=== PATIENT | male | born 1960 | race Caucasian/White ===

== ENCOUNTER 2016-05-02 19:32 | Inpatient (IN) ==
[2016-05-03] MEDS ORDERED: Bisacodyl 10 MG RECTAL SUPPOSITORY RC PRN (01:22)
--- NOTE | 2016-05-03 01:22 | Internal Med History&Physical ---
Date of Encounter: 05/03/16 Time of Encounter: 00:15 Assessment and Plan (1) Closed left hip fracture Current visit: Yes Status: Acute Admit I have not been able to locate any studies I will obtain EKG, and 2D ECHO for evaluation case-operative risk stratification I understand he had imaging done at another facility and the orthopedic surgeon has viewed these images. Optimal pain control Consult orthopedic surgery Supportive care. Continue other medications for chronic morbidities GI/DVT prophylaxis The patient will need DEXA in the out-patient stting to evaluate osteoporosis and inform treatment decisions. I discussed my assessment with the patient, he verbalized understanding and is agreeable to admission. He is admitted for management of acute fracture. Qualifiers: Encounter type: initial encounter Qualified Code(s): S72.002A - Fracture of unspecified part of neck of left femur, initial encounter for closed fracture (2) Fall Current visit: Yes Status: Acute Qualifiers: Encounter type: initial encounter Qualified Code(s): W19.XXXA - Unspecified fall, initial encounter (3) Physical deconditioning Current visit: Yes Status: Acute (4) CHF (congestive heart failure) Current visit: Yes Status: Acute Qualifiers: Congestive heart failure chronicity: unspecified congestive heart failure chronicity Qualified Code(s): I50.9 - Heart failure, unspecified (5) Osteoporosis Current visit: Yes Status: Acute Internal Medicine - H&P: HPI Chief complaint: left hip pain x 1 day Admitted From: Hospital to Hospital Transfer Plans for Post Hospital Care: Transfer Residential Facility History of present illness: Mr. Epps is a 55 year old male with medical hsitory significant for CHF, osteoporosis, reported recent multiple hospitalizations, presents with a mechanical fall while trying to unleash his dog. He reports he fell on his left him. He was unable to arise from the fallen position and he felt intractable pain with attempts at arising from the floor. He was brought to the hospital by EMS and imaging conforms left hip fracture. The orthopedic surgeon has been informed, he will see in consult in the morning. He reports no other acute symptoms, he reports chronic symptoms like fatigue, deconditioning, which he relates to reuperation from recent spate of illness. He denied dizziness, no chest pain or palpitation. No fever, no urinary symptoms. No cough, no N//V/D. He agres to unintentional weight loss which he relates to his recent ill- health. He recently underwent open cholecystectomy. He currently has a PICC line, Ertapenem and diflucan are listed on his home medication list. I am unable to confirm their indication. No receords of prior hospitalizatiions in [facility]. No other associated consititutional or systemic symptoms. He is FULL CODE as per discussion. He niominates his spouse, Maura Epps [phone]) as his NOK/POA. ROS: See HPI, positives and relevant negatives are detailed, system-symptom not mentioned is assumed negative unless otherwise stated. Past Med Surg Social Fam HX - Past Medical History Medical history: arthritis, CHF, osteoporosis - Past Surgical History Surgical History: cholecystectomy - Social History Smoking Status: Former smoker Alcohol use: none Drug use: none - Family History Mother Living Status: Age at : 75 Cause of : kidney failure Hx Family Cardiac Disorders: Yes Hx Family Respiratory Disorders: No Hx Family Cancer: No Hx Family GI Disorders: No Hx Family Genitourinary Disorders: Yes Hx Family Endocrine Disorder: Yes Hx Family Musculoskeletal Disorders: No Hx Family Neuromuscular Disorders: No Hx Family Neurologic Disorders: No Hx Family HEENT Disorders: No Hx Family Autoimmune Disorders: No Hx Family Reproductive Disorders: No Hx Family Psychosocial Disorders: No Hx Family Medical Disorders: No Internal Medicine - H&P: Meds Amitriptyline HCl PO DAILY 05/02/16 [History] Bisacodyl [Dulcolax] 10 mg RC PRN PRN 05/02/16 [History] Ertapenem [INVanz] IV DAILY 05/02/16 [History] Fluconazole [Diflucan] PO DAILY 05/02/16 [History] Lactulose BID 05/02/16 [History] Lexapro PO DAILY 05/02/16 [History] Linezolid [Linezolid] PO BID 05/02/16 [History] MOM Conc [Milk of Magnesia Conc] 30 ml PO PRN PRN 05/02/16 [History] Morphine Sulfate SR (12 HR) [MS Contin] 60 mg PO Q12HR 05/02/16 [History] Polyethylene Glycol 3350 [MiraLAX] 17 gm PO PRN PRN 05/02/16 [History] PredniSONE [Ana] 5 mg PO DAILY 05/02/16 [History] Tizanidine HCl [Zanaflex] 4 mg PO TID 05/02/16 [History] Topiramate [Topamax] 50 mg PO BID 05/02/16 [History] Venelex Ointment PRN PRN 05/02/16 [History] Allergies No Known Allergies Allergy (Verified 05/03/16 01:01) All Systems PM: A 10-system review of systems was performed and is negative for pertinent findings except as documented above in the HPI. - Constitutional Vitals: Temp Pulse Resp BP Pulse Ox 98.0 F 114 17 123/81 91 L 05/02/16 22:46 05/02/16 22:46 05/02/16 22:46 05/02/16 22:46 05/02/16 22:46 General appearance: Present: cooperative, mild distress, A&O X 3, pleasant, underweight, loss of weight. Absent: no acute distress - Head Head exam: Present: atraumatic, normal inspection, normocephalic - Eye Eye exam: Present: EOMI, PERRL, sclera anicteric. Absent: scleral icterus Pupils: Present: PERRL - ENT ENT exam: Present: mucous membranes moist - Neck Neck exam general surgery: Present: normal inspection, supple, trachea midline. Absent: lymphadenopathy, nuchal rigidity - Respiratory Respiratory exam: Present: CTAB. Absent: respiratory distress - Cardiovascular Cardiovascular exam: Present: RRR, +S1, +S2. Absent: diastolic murmur, JVD, systolic murmur - GI/Abdominal GI/Abdominal exam: Present: normal bowel sounds, soft. Absent: firm, guarding, mass, tenderness, no peritoneal signs - Rectal Rectal exam: Present: deferred - Additional comments: no CVA, flank or suprapubic tenderness. No bruises over flanl. - Extremities Exam Additional comments: left lower extremity is shortened and externally rotated. - Neurological Exam Neurological exam: Present: alert, oriented X3, reflexes normal, no focal deficits, strengths equal and symetr throughout. Absent: motor sensory deficit , pronater drift, facial droop, speech deficit Additional comments: except for left lower extremity, where perceived weakness is due to limitation from fracture. - Psychiatric Psychiatric exam: Present: normal affect, normal mood. Absent: agitated, anxious, depressed, homicidal ideation, suicidal ideation - Skin Additional comments: no active skin lesion Internal Med - H&P Results - Labs Labs: not available yet. Just ordered. - EKG Data EKG comments: 05/03/16 03:11 EKG ordered.
[2016-05-03] MEDS ORDERED: Acetaminophen 325 MG TABLET PO PRN (01:34)
[2016-05-03] MEDS ORDERED: Naloxone 0.4 MG/ML INJ IVP PRN (01:34)
[2016-05-03] MEDS ORDERED: Ondansetron 4 MG/2 ML VIAL IVP PRN (01:39)
[2016-05-03] MEDS: *HR* Morphine 2 MG/ML SYRINGE IVP PRN ×6 (01:54→21:54)
[2016-05-03] MEDS: Ringers Solution, Lactated 1,000 ML IVC SCH (01:55)
[2016-05-03 02:22] LABS: Bilirubin,Urine Negative (Negative); Blood,Urine Negative (Negative); Clarity,Urine Clear (Clear); Color,Urine Yellow (Yellow); Glucose,Urine (UA) Normal (Normal); Ketones,Urine Negative (Negative); Leukocyte Esterase,Urine Negative (Negative); Nitrite,Urine Negative (Negative); Protein,Urine Trace mg/dL (Neg-Trace); Specific Gravity,Urine 1.019 (1.010-1.025); Urobilinogen,Urine Normal (Normal)
[2016-05-03 02:24] LABS: Bacteria,Urine None Seen per hpf (None-Few); Hyaline Casts,Urine None Seen per lpf (None-Few); RBC,Urine 0-3 per hpf (0-3); Squamous Epithelial Cell,Urine Few per lpf (None-Few); WBC,Urine 0-3 per hpf (0-3)
[2016-05-03] MEDS: *HR* Morphine Sulfate SR (12 HR) 60 MG TABLET.ER PO SCH ×2 (05:24→17:45)
[2016-05-03] MEDS: *HR* Enoxaparin 40 MG/0.4 ML SYRINGE SQ SCH (05:24)
[2016-05-03 05:47] LABS: Basophils # 0.1 K/mcL (0.0-0.2); Basophils % 0.6 %; Eosinophils # 0.3 K/mcL (0.0-0.6); Hemoglobin 10.8 g/dL (12.9-16.9); Immature Granulocytes % 0.4 % (0-4); Lymphocytes # 2.2 K/mcL (0.6-4.6); Lymphocytes % 26.1 %; Mean Corpuscular HGB Conc 32.7 g/dL (31.6-35.5); Mean Corpuscular Hemoglobin 30.9 pg (28.0-33.3); Mean Corpuscular Volume 94.6 fL (83.0-100.0); Monocytes # 0.6 K/mcL (0.0-1.3); Monocytes % 7.6 %; Neutrophils # 5.1 K/mcL (1.6-8.9); Platelet Count 133 K/mcL (140-400); Red Blood Count 3.49 M/mcL (4.19-5.50); Red Cell Distribution Width 15.7 % (11.5-14.5); Segmented Neutrophils % 61.3 %
[2016-05-03 06:34] LABS: BUN/Creatinine Ratio 11 (6-26); Blood Urea Nitrogen 7 mg/dL (8-26); Carbon Dioxide 22 mEq/L (19-29); Chloride 107 mEq/L (98-109); Creatine Kinase 63 Units/L (30-200); Glucose 83 mg/dL (70-99); Osmolality,Calculated 283 (280-300); Potassium 3.7 mEq/L (3.5-4.5); Sodium 138 mEq/L (136-145); eGFR For African Americans > 60 (> 60); eGFR For Non-African Americans > 60 (> 60)
[2016-05-03] MEDS: *HR* HYDROcodone/Acet 5/325 mg TABLET PO PRN (06:51)
[2016-05-03] MEDS ORDERED: MOM Conc 10 ML UD.LIQ PO PRN (09:00)
[2016-05-03] MEDS: predniSONE 5 MG TABLET PO SCH (09:27)
[2016-05-03] MEDS: Topiramate 25 MG TABLET PO SCH ×2 (09:27→21:11)
[2016-05-03] MEDS: tiZANidine 4 MG TABLET PO SCH ×3 (09:27→21:11)
--- NOTE | 2016-05-03 13:55 | ECHO - Doppler Report ---
Echocardiogram Name: Chapo Epps Date of Study: 05/03/2016 Date: 1960 Ht: 69.0 in Medical Record#: [id number] Age: 55 Wt: 129.0 lb Gender: Male BSA: 1.71 Order #: [id number] Location: [facility] Room #: [facility] Reading Physician: Raul Grover DO, BARRON, WESLEY REAL Rn Case Management: Aarti Ch RVT Ordering Physician: Cosme Pereira MD Primary Physician: Carisa Ferguson MD Indications: History of heart failure Impressions: LVEF 50%. Normal LV chamber size, wall thickness and function. Mild left ventricular diastolic dysfunction. Normal right ventricular structure and function. No evidence of pulmonary hypertension. No significant valvular dysfunction. Left Ventricular Wall Motion: Rest Echo Findings All wall segments showed normal motion. Findings: Study Quality * Technically sub-optimal due to poor echocardiographic windows. ECG Findings * Sinus tachycardia. Left Ventricle * LVEF 50%. * Normal LV chamber size, wall thickness and function. * Mild left ventricular diastolic dysfunction. Right Ventricle * Normal right ventricular structure and function. Left Atrium * Normal left atrial size. Right Atrium * Normal right atrial size. Interatrial Septum * No evidence of PFO by color Doppler. Aortic Valve * Trileaflet aortic valve with normal function. * No aortic regurgitation. * No aortic stenosis. Mitral Valve * Normal mitral valve structure and function. * No mitral regurgitation. * No mitral stenosis. Tricuspid Valve * Normal tricuspid valve structure and function. * Trace tricuspid regurgitation. * No evidence of pulmonary hypertension. Pulmonic Valve * Normal pulmonic valve structure and function. * No pulmonic regurgitation. Aorta * Normally sized aortic root. Pericardium * The pericardium appears normal. IVC * Normal IVC dimensions and inspiratory collapse. Pulmonary Artery * Normal visualized portions of the main pulmonary artery. History Family History of CAD Measurements: BP: 135/ 84 2D Normal Values RVIDd: 1.80 cm <2.7 cm IVSd: .70 cm 0.6 - 1.0 cm LVIDd: 4.80 cm 3.7 - 5.6 cm LVPWd: .70 cm 0.6 - 1.1 cm LVIDs: 3.40 cm 1.5 - 3.6 cm AO: 2.50 cm < 4.0 cm LA: 2.90 cm 2.0 - 4.0cm %FS: 29.20 cm >25 % LA volume: 29 Mitral Valve Peak E:1.13 m/sec Peak E' Lat Ayo:13.8 cm/s Peak E' Med Ayo:13.4 cm/s E/E' Lat Ratio:8.2 E/E' Med Ratio:8.4 Tricuspid Valve TV Regurg Peak Grad: 28.00mmHg TV Regurg Peak Ayo: 2.63m/sec Updated by Raul Grover DO, FACBrent, FARHAN, FASALMA on 05/03/2016 1:47:44 PM electronically signed on 05/03/2016 1:50:31 PM with status of Final Wall Motion Richard: 1=Normal, 2=Hypokinesis, 3=Akinesis, 4=Dyskinesis, 5=Aneurysmal, 6=Hyperkinetic, X=Not Visualized (Blank)=Missing
--- NOTE | 2016-05-03 17:27 | Event Note ---
Date of Encounter: 05/03/16 Time of Encounter: 17:24 Patient recently hospitalized at [facility] and treated for right abdominal abscess and acute cholecystitis. He underwent open cholecystectomy followed by placement of percutaneous drainage for right abdominal abscess . He was discharged home on Invanz 1gm daily from 04/25 to 06/04. Patient reports pain is controlled with pain medications. No history of CHF, he was on lasix for LE edema but has no taken it for the past 4 months. PE: VS stable. Chest CTAB. Heart RRR, no murmur. abdomen soft, non-tender. no edema. no skin rash. neuro intact. echocardiogram: LVEF 50%, mild diastolic dysfunction. PLAN: resume IV Invanz 1 gm daily and Vancomycin.
[2016-05-03] MEDS ORDERED: Vancomycin 1,000 MG in D5% in Water 250 ML IVPB SCH (18:00)
[2016-05-03] MEDS: Ertapenem 1,000 MG in 0.9 % Sodium Chloride Mini Bag 100 ML IVPB SCH (18:02)
[2016-05-03] MEDS: Vancomycin 1,000 MG in D5% in Water 250 ML IVPB SCH (19:36)
[2016-05-04] MEDS: *HR* Morphine 2 MG/ML SYRINGE IVP PRN ×9 (00:26→22:39)
[2016-05-04 04:23] LABS: BUN/Creatinine Ratio 6 (6-26); Calcium 8.2 mg/dL (8.6-10.8); Carbon Dioxide 23 mEq/L (19-29); Chloride 105 mEq/L (98-109); Glucose 102 mg/dL (70-99); Magnesium 1.3 mg/dL (1.6-2.6); Osmolality,Calculated 281 (280-300); Potassium 3.6 mEq/L (3.5-4.5); Sodium 137 mEq/L (136-145); eGFR For African Americans > 60 (> 60); eGFR For Non-African Americans > 60 (> 60)
[2016-05-04 04:25] LABS: Blood Urea Nitrogen 4 mg/dL (8-26)
[2016-05-04 04:26] LABS: Basophils # 0.1 K/mcL (0.0-0.2); Basophils % 0.6 %; Eosinophils # 0.4 K/mcL (0.0-0.6); Eosinophils % 5.2 %; Hematocrit 34.4 % (37.5-50.1); Hemoglobin 11.1 g/dL (12.9-16.9); Immature Granulocytes % 0.4 % (0-4); Lymphocytes # 2.3 K/mcL (0.6-4.6); Lymphocytes % 27.9 %; Mean Corpuscular HGB Conc 32.3 g/dL (31.6-35.5); Mean Corpuscular Hemoglobin 30.2 pg (28.0-33.3); Mean Corpuscular Volume 93.7 fL (83.0-100.0); Mean Platelet Volume 10.2 fL (9.4-12.4); Monocytes # 0.7 K/mcL (0.0-1.3); Monocytes % 8.6 %; Neutrophils # 4.7 K/mcL (1.6-8.9); Platelet Count 147 K/mcL (140-400); Red Blood Count 3.67 M/mcL (4.19-5.50); Red Cell Distribution Width 15.7 % (11.5-14.5); Segmented Neutrophils % 57.3 %
[2016-05-04] MEDS: *HR* Morphine Sulfate SR (12 HR) 60 MG TABLET.ER PO SCH ×2 (05:50→18:33)
[2016-05-04] MEDS: Vancomycin 1,000 MG in D5% in Water 250 ML IVPB SCH ×3 (05:51→18:34)
[2016-05-04] MEDS: Ringers Solution, Lactated 1,000 ML IVC SCH (05:52)
[2016-05-04] MEDS: *HR* Enoxaparin 40 MG/0.4 ML SYRINGE SQ SCH (06:35)
[2016-05-04] MEDS: tiZANidine 4 MG TABLET PO SCH ×3 (08:13→19:57)
[2016-05-04] MEDS: Topiramate 25 MG TABLET PO SCH ×2 (08:13→19:57)
[2016-05-04] MEDS: Ertapenem 1,000 MG in 0.9 % Sodium Chloride Mini Bag 100 ML IVPB SCH (08:13)
[2016-05-04] MEDS: predniSONE 5 MG TABLET PO SCH (08:13)
[2016-05-04] MEDS: *HR* HYDROcodone/Acet 5/325 mg TABLET PO PRN ×2 (12:12→18:33)
[2016-05-04] MEDS ORDERED: Magnesium Sulfate 2 GM in D5% in Water 100 ML IVPB STA (13:01)
[2016-05-04] MEDS ORDERED: Magnesium Sulfate 1 GM in D5% in Water 100 ML IVPB ONE (13:04)
--- NOTE | 2016-05-04 14:22 | Orthopedic Consult Note ---
Date of Encounter: 05/04/16 Time of Encounter: 14:18 Assessment and Plan (1) Closed left hip fracture Current Visit: Yes Status: Acute Patient is a displaced femoral neck fracture his left hip. Discussed with patient this will require a hemiarthroplasty The procedure with the expected postoperative care was discussed patient. We discussed the risks, benefits and alternatives. Major risks discussed with her leg length discrepancy, segment of injury, dislocation, and infections. The patient states that due to scoliosis he is already one quarter of an inch shorter on the right side and uses a shoe lift. Qualifiers: Encounter type: initial encounter Qualified Code(s): S72.002A - Fracture of unspecified part of neck of left femur, initial encounter for closed fracture (2) Abscess, intra-abdominal, postoperative Current Visit: Yes Status: Acute The patient has a postoperative abdominal abscess that was drained. We will order a CT scan of his chest and abdomen with IV contrast. Discussed patient that if the abscess is still present, I do recommend putting in a prosthesis until the infection is completely cleared. Qualifiers: Encounter type: initial encounter Qualified Code(s): T81.4XXA - Infection following a procedure, initial encounter; K65.1 - Peritoneal abscess History of Present Illness Chief complaint: Left hip pain HPI: Mr. Epps is a 55 year old male ending over this and night attending to his dog when he fell over onto his left side sustaining a left hip fracture. Patient is a normal community ambulator. The patient is a significant recent past medical history of an open cholecystectomy on 03/25/2016 at [facility] in [place]. Patient had a postoperative abscess that apparently extended into his mediastinum according to the patient. His discharge summary shows that an intra-abdominal abscess was drained by IR on 04/16/2016. The patient has been receiving Invanz through PICC line. I spoke with the cardiothoracic surgeon, Dr. Benny Jimenez, he recommends repeating a CT scan of his chest and abdomen with IV contrast. Past Med Surg Social Fam HX - Past Medical History Source: patient, old records reviewed Medical history: arthritis, CHF, osteoporosis - Past Surgical History Surgical History: cholecystectomy (With postop abscess), orthopedic, other ( Spine fusion), other (Exploratory laparotomy secondary to trauma) - Social History Smoking Status: Former smoker Alcohol use: none Drug use: none - Family History Mother Living Status: Age at : 75 Cause of : kidney failure Hx Family Cardiac Disorders: Yes Hx Family Respiratory Disorders: No Hx Family Cancer: No Hx Family GI Disorders: No Hx Family Genitourinary Disorders: Yes Hx Family Endocrine Disorder: Yes Hx Family Musculoskeletal Disorders: No Hx Family Neuromuscular Disorders: No Hx Family Neurologic Disorders: No Hx Family HEENT Disorders: No Hx Family Autoimmune Disorders: No Hx Family Reproductive Disorders: No Hx Family Psychosocial Disorders: No Hx Family Medical Disorders: No Medications and Allergies MOM Conc [Milk of Magnesia Conc] 30 ml PO PRN PRN 05/02/16 [History] Morphine Sulfate SR (12 HR) [MS Contin] 60 mg PO Q12HR 05/02/16 [History] Polyethylene Glycol 3350 [MiraLAX] 17 gm PO PRN PRN 05/02/16 [History] PredniSONE [Ana] 5 mg PO DAILY 05/02/16 [History] Tizanidine HCl [Zanaflex] 4 mg PO TID 05/02/16 [History] Topiramate [Topamax] 50 mg PO BID 05/02/16 [History] Amitriptyline [Elavil] 50 mg PO HS 05/03/16 [History] Escitalopram [Lexapro] 10 mg PO DAILY 05/03/16 [History] Sennosides/Docusate Sodium [Cvs Stool Softener-Laxative Tb] 1 tab PO BID PRN [History] Testosterone Cypionate [Testone Cik] 2.5 ml IM QMONTH 05/03/16 [History] Allergies No Known Allergies Allergy (Verified 05/03/16 09:02) All Systems Reviewed: A 10-system review of systems was performed and is negative for pertinent findings except as documented above in the HPI. Physical Exam - Constitutional Vitals: Temp Pulse Resp BP Pulse Ox 98.1 F 118 16 118/87 99 05/04/16 11:58 05/04/16 11:58 05/04/16 11:58 05/04/16 11:58 05/04/16 11:58 - Fracture left hip Appearance: normal (Left lower extremity shortening and external rotation) Compartments: soft Distal extremity neurovascularly intact: Yes Proximal joint involvement: Yes Distal joint involvement: No Other injury: muscle injury: no, tendon injury: no, ligament injury: no, vascular injury: no, nerve injury: no Results - Labs Result Diagrams: 05/04/16 03:57 05/04/16 03:57 Labs: Abnormal lab results RBC 3.67 M/mcL (4.19-5.50) L 05/04/16 03:57 Hgb 11.1 g/dL (12.9-16.9) L 05/04/16 03:57 Hct 34.4 % (37.5-50.1) L 05/04/16 03:57 RDW 15.7 % (11.5-14.5) H 05/04/16 03:57 BUN 4 mg/dL (8-26) L 05/04/16 03:57 Creatinine 0.64 mg/dL (0.72-1.25) L 05/04/16 03:57 Glucose 102 mg/dL (70-99) H 05/04/16 03:57 Calcium 8.2 mg/dL (8.6-10.8) L 05/04/16 03:57 Magnesium 1.3 mg/dL (1.6-2.6) L 05/04/16 03:57 H & H 05/04/16 Range/Units 03:57 Hgb 11.1 L (12.9-16.9) g/dL Hct 34.4 L (37.5-50.1) % All other labs normal. - Diagnostic results Hip x-ray: image reviewed (Left hip displaced femoral neck fracture) Consult Discharge Plan - Plan Referrals: Carisa Ferguson MD [Primary Care Provider] -
--- NOTE | 2016-05-04 16:04 | Internal Med Progress Note ---
Date of Encounter: 05/04/16 Time of Encounter: 13:00 - Assessment and plan (1) Fall Current Visit: Yes Status: Acute Assessment and plan: mechanical fall Qualifiers: Encounter type: initial encounter Qualified Code(s): W19.XXXA - Unspecified fall, initial encounter (2) Closed left hip fracture Current Visit: Yes Status: Acute Assessment and plan: 05/03: X-ray of hip shows displaced femoral neck fracture in his left hip. Orthopedic service is following: plan for hemiarthorplasty. continue pain control. Qualifiers: Encounter type: initial encounter Qualified Code(s): S72.002A - Fracture of unspecified part of neck of left femur, initial encounter for closed fracture (3) Abscess, intra-abdominal, postoperative Current Visit: Yes Status: Acute Assessment and plan: Patient recently hospitalized at [facility] and treated for right abdominal abscess and acute cholecystitis. He underwent open cholecystectomy followed by placement of percutaneous drainage for right abdominal abscess . He was discharged home on Invanz 1gm daily and oral Zyvox 600 mg daily from 04/25 to 06/04. PLAN:check ESR, CRP, Ct chest/ab/pelvis with contrast to assess abscess. Qualifiers: Encounter type: initial encounter Qualified Code(s): T81.4XXA - Infection following a procedure, initial encounter; K65.1 - Peritoneal abscess (4) Diastolic CHF Current Visit: No Status: Chronic Assessment and plan: compensated. patient not taking lasix for 3 months. Qualifiers: Congestive heart failure chronicity: chronic Qualified Code(s): I50.32 - Chronic diastolic (congestive) heart failure - Subjective Interval history: he reports pain in his left hip. no other complaints. - Constitutional Vitals: Temp Pulse Resp BP Pulse Ox 97.8 F 111 16 118/75 97 05/04/16 15:51 05/04/16 15:51 05/04/16 15:51 05/04/16 15:51 05/04/16 15:51 General appearance: Present: cooperative, mild distress, A&O X 3, pleasant, underweight, loss of weight. Absent: no acute distress - Eye Eye exam: Present: PERRL, sclera anicteric - Neck Neck exam general surgery: Present: supple, trachea midline. Absent: lymphadenopathy - Respiratory Respiratory exam: Present: CTAB - Cardiovascular Cardiovascular exam: Present: RRR, tachycardia - GI/Abdominal GI/Abdominal exam: Present: normal bowel sounds, soft. Absent: distended, tenderness - Extremities Exam Extremities exam: Absent: pedal edema - Back Exam Back exam: Absent: CVA tenderness (L), CVA tenderness (R) - Neurological Exam Neurological exam: Present: alert, oriented X3, no focal deficits. Absent: facial droop, speech deficit Internal Medicine: Result - Labs CBC & Chem 7: 05/04/16 03:57 05/04/16 03:57 Labs: Short CBC 05/04/16 Range/Units 03:57 WBC 8.3 (4.3-11.1) K/mcL Hgb 11.1 L (12.9-16.9) g/dL Hct 34.4 L (37.5-50.1) % Plt Count 147 (140-400) K/mcL Neutrophils # 4.7 (1.6-8.9) K/mcL BMP 05/04/16 03:57 Sodium 137 Potassium 3.6 Chloride 105 Carbon Dioxide 23 BUN 4 L Creatinine 0.64 L Glucose 102 H Calcium 8.2 L Consult Discharge Plan - Plan Referrals: Carisa Ferguson MD [Primary Care Provider] -
[2016-05-04] MEDS ORDERED: Ipratropium/Albuterol Neb 3 ML IH PRN (17:35)
[2016-05-04] MEDS: Ipratropium/Albuterol Neb 3 ML IH SCH (22:54)
[2016-05-05] MEDS: Ringers Solution, Lactated 1,000 ML IVC SCH ×3 (00:55→18:26)
[2016-05-05] MEDS: *HR* Morphine 2 MG/ML SYRINGE IVP PRN ×2 (00:56→05:01)
[2016-05-05] MEDS: *HR* Enoxaparin 40 MG/0.4 ML SYRINGE SQ SCH (05:13)
[2016-05-05 05:16] LABS: Basophils # 0.1 K/mcL (0.0-0.2); Basophils % 0.8 %; Eosinophils # 0.4 K/mcL (0.0-0.6); Eosinophils % 5.5 %; Hematocrit 34.1 % (37.5-50.1); Hemoglobin 11.4 g/dL (12.9-16.9); Immature Granulocytes % 0.3 % (0-4); Lymphocytes # 2.4 K/mcL (0.6-4.6); Lymphocytes % 29.6 %; Mean Corpuscular HGB Conc 33.4 g/dL (31.6-35.5); Mean Corpuscular Volume 92.7 fL (83.0-100.0); Mean Platelet Volume 9.9 fL (9.4-12.4); Monocytes # 0.8 K/mcL (0.0-1.3); Monocytes % 9.8 %; Neutrophils # 4.3 K/mcL (1.6-8.9); Platelet Count 144 K/mcL (140-400); Red Blood Count 3.68 M/mcL (4.19-5.50); Red Cell Distribution Width 15.6 % (11.5-14.5)
[2016-05-05 05:31] LABS: BUN/Creatinine Ratio 5 (6-26); Calcium 8.4 mg/dL (8.6-10.8); Carbon Dioxide 22 mEq/L (19-29); Chloride 108 mEq/L (98-109); Glucose 100 mg/dL (70-99); Osmolality,Calculated 281 (280-300); Potassium 3.6 mEq/L (3.5-4.5); Sodium 137 mEq/L (136-145); eGFR For African Americans > 60 (> 60); eGFR For Non-African Americans > 60 (> 60)
[2016-05-05 05:35] LABS: Blood Urea Nitrogen 3 mg/dL (8-26)
[2016-05-05] MEDS: *HR* Morphine Sulfate SR (12 HR) 60 MG TABLET.ER PO SCH ×2 (06:15→17:42)
--- NOTE | 2016-05-05 06:31 | General Surgery Consult Note ---
<Jovany Barbosa - Last Filed: 05/05/16 13:13> Date of Encounter: 05/05/16 Time of Encounter: 17:45 Assessment and Plan (1) Closed left hip fracture Current Visit: Yes Status: Acute s/p mechanical fall. Orthopedics involved. Recent hospitalization for intra-abdominal abscess. Concern for prosthesis with recent infection. Recent inpatient records requested. (2) Abscess, intra-abdominal, postoperative Current Visit: Yes Status: Chronic intra-abdominal abscess s/p open cholcystectomy 03/25/16. CT confirmed fluid collection in the gallbladder fossa. Records requested from previous inpatient hospitalization. Patient previously on Zyvox and ertapenem throught PICC at home, will continue dual antibiotic coverage. (3) Fall Current Visit: Yes Status: Acute L hip fracture s/p mechanical fall Orthopedics consulted. (4) CHF (congestive heart failure) Current Visit: Yes Status: Chronic No apparent acute CHF. Management per medicine service. (5) Osteoporosis Current Visit: Yes Status: Chronic (6) Physical deconditioning Current Visit: Yes Status: Chronic History of Present Illness Consult date: 05/04/16 Reason for consult: other (L leg fracture) Requesting physician: Jese Riggs History of present illness: Patient transferred to [place] for L leg fracture, which occurred on . On CT he was found to have gallbladder fossa fluid collection on CT. Mr. Epps had recently been admitted to [facility] in [place], had open cholecystectomy due to bowel obstruction on Mar 25, 2016. Discharged on Apr 09 2016. On follow up, found to be tachycardiac (per patient) and readmitted on Apr 15 for intra-abdominal and pericardial infection. Patient states during this stay he also had fluid on his lungs and they drained approx 1 L, which he felt better after they did so. They also placed an intra-abdominal drain for the abdominal abscess and began him on Ertapenem 1gm IV daily and Zyvox 600mg Q12H, those of which he was continuing to take prior to this current admission. Patient just discharged from [facility] on 04/24/16. He states he had an echo while inpatient and was at the humidifier maintenance worker office 05/02/16 to follow up and review result, however it had to be reschedule due to the physician having an emergency. He was to follow up with Dr. Jaquez, the Surgeon, within two weeks; an appt. had not yet been made. Patient denies any complaints other than pain in his L leg. Denies any chest pain, palpitations, dizziness, shortness of breath, abdominal pain. Past Med Surg Social Fam HX - Past Medical History Source: patient, obtained from family Medical history: arthritis, CHF, osteoporosis - Past Surgical History Surgical History: cholecystectomy (With postop abscess), orthopedic, other ( Spine fusion), other (Exploratory laparotomy secondary to trauma) - Social History Smoking Status: Former smoker Alcohol use: none Drug use: none - Family History Mother Living Status: Age at : 75 Cause of : kidney failure Hx Family Cardiac Disorders: Yes Hx Family Respiratory Disorders: No Hx Family Cancer: No Hx Family GI Disorders: No Hx Family Genitourinary Disorders: Yes Hx Family Endocrine Disorder: Yes Hx Family Musculoskeletal Disorders: No Hx Family Neuromuscular Disorders: No Hx Family Neurologic Disorders: No Hx Family HEENT Disorders: No Hx Family Autoimmune Disorders: No Hx Family Reproductive Disorders: No Hx Family Psychosocial Disorders: No Hx Family Medical Disorders: No Medications and Allergies MOM Conc [Milk of Magnesia Conc] 30 ml PO PRN PRN 05/02/16 [History] Morphine Sulfate SR (12 HR) [MS Contin] 60 mg PO Q12HR 05/02/16 [History] Polyethylene Glycol 3350 [MiraLAX] 17 gm PO PRN PRN 05/02/16 [History] PredniSONE [Ana] 5 mg PO DAILY 05/02/16 [History] Tizanidine HCl [Zanaflex] 4 mg PO TID 05/02/16 [History] Topiramate [Topamax] 50 mg PO BID 05/02/16 [History] Amitriptyline [Elavil] 50 mg PO HS 05/03/16 [History] Escitalopram [Lexapro] 10 mg PO DAILY 05/03/16 [History] Sennosides/Docusate Sodium [Cvs Stool Softener-Laxative Tb] 1 tab PO BID PRN [History] Testosterone Cypionate [Testone Cik] 2.5 ml IM QMONTH 05/03/16 [History] Allergies No Known Allergies Allergy (Verified 05/03/16 09:02) Review of Systems All systems PM: A 10-system review of systems was performed and is negative for pertinent findings except as documented above in the HPI. - Constitutional no chills, no fever(s) - EENT Nose, mouth and throat: no dizziness - Cardiovascular no chest pain, no dyspnea, no edema, no palpitations, no syncope - Respiratory no dyspnea - Gastrointestinal no abdominal pain - Genitourinary no dysuria - Musculoskeletal muscle weakness (deconditioning) - Neurological no confusion, no dizziness - Endocrine fatigue, no palpitations General Surgery Exam Initial Vital Signs Temp Pulse Resp BP Pulse Ox 98.0 F 114 17 123/81 91 L 05/02/16 22:46 05/02/16 22:46 05/02/16 22:46 05/02/16 22:46 05/02/16 22:46 - General physical appearance well developed, well nourished, no distress - Eyes normal ocular movement - ENT normal mucosa - Neck trachea midline - Respiratory normal respiratory effort, clear to auscultation - Cardiovascular Cardiovascular exam: Present: RRR, 15, 16 - Abdomen Abdomen general surgery: Present: bowel sounds present, soft, non tender - Incision Incision: Present: intact (previous incision from open cholecystectomy in [facility] appears to be healing well, no apparent erythema or draining.) - Integumentary Integumentary general surgery: Present: warm and dry, no abnormal pigmentation - Neurologic Present: CN 2-12 grossly intact - Psychiatric Psychiatric general surgery: Present: appropriate, oriented to person, oriented to place, oriented to time, speech is normal, memory intact Exam Initial Vital Signs Temp Pulse Resp BP Pulse Ox 98.0 F 114 17 123/81 91 L 05/02/16 22:46 05/02/16 22:46 05/02/16 22:46 05/02/16 22:46 05/02/16 22:46 Results - Labs 05/05/16 05:00 05/05/16 05:00 Abnormal lab results RBC 3.68 M/mcL (4.19-5.50) L 05/05/16 05:00 Hgb 11.4 g/dL (12.9-16.9) L 05/05/16 05:00 Hct 34.1 % (37.5-50.1) L 05/05/16 05:00 RDW 15.6 % (11.5-14.5) H 05/05/16 05:00 ESR 79 mm/hr (0-10) H 05/04/16 03:57 BUN 3 mg/dL (8-26) L 05/05/16 05:00 Creatinine 0.59 mg/dL (0.72-1.25) L 05/05/16 05:00 BUN/Creatinine Ratio 5 (6-26) L 05/05/16 05:00 Glucose 100 mg/dL (70-99) H 05/05/16 05:00 Calcium 8.4 mg/dL (8.6-10.8) L 05/05/16 05:00 C-Reactive Protein 68 mg/L (Less than 5) H 05/04/16 03:57 Diabetes panel 05/05/16 Range/Units 05:00 Sodium 137 (136-145) mEq/L Potassium 3.6 (3.5-4.5) mEq/L Chloride 108 (98-109) mEq/L Carbon Dioxide 22 (19-29) mEq/L BUN 3 L (8-26) mg/dL Creatinine 0.59 L (0.72-1.25) mg/dL Glucose 100 H (70-99) mg/dL Calcium 8.4 L (8.6-10.8) mg/dL Calcium panel 05/05/16 Range/Units 05:00 Calcium 8.4 L (8.6-10.8) mg/dL Pituitary panel 05/05/16 Range/Units 05:00 Sodium 137 (136-145) mEq/L Potassium 3.6 (3.5-4.5) mEq/L Chloride 108 (98-109) mEq/L Carbon Dioxide 22 (19-29) mEq/L BUN 3 L (8-26) mg/dL Creatinine 0.59 L (0.72-1.25) mg/dL Glucose 100 H (70-99) mg/dL Calcium 8.4 L (8.6-10.8) mg/dL Adrenal panel 05/05/16 Range/Units 05:00 Sodium 137 (136-145) mEq/L Potassium 3.6 (3.5-4.5) mEq/L Chloride 108 (98-109) mEq/L Carbon Dioxide 22 (19-29) mEq/L BUN 3 L (8-26) mg/dL Creatinine 0.59 L (0.72-1.25) mg/dL Glucose 100 H (70-99) mg/dL Calcium 8.4 L (8.6-10.8) mg/dL All other labs normal. Consult Discharge Plan - Plan Referrals: Carisa Ferguson MD [Primary Care Provider] - <Deb Garcia - Last Filed: 05/07/16 10:10> Review of Systems All systems PM: A 10-system review of systems was performed and is negative for pertinent findings except as documented above in the HPI. General Surgery Exam Initial Vital Signs Temp Pulse Resp BP Pulse Ox 98.0 F 114 17 123/81 91 L 05/02/16 22:46 05/02/16 22:46 05/02/16 22:46 05/02/16 22:46 05/02/16 22:46 Exam Initial Vital Signs Temp Pulse Resp BP Pulse Ox 98.0 F 114 17 123/81 91 L 05/02/16 22:46 05/02/16 22:46 05/02/16 22:46 05/02/16 22:46 05/02/16 22:46 Results - Labs 05/07/16 03:46 05/07/16 03:46 Abnormal lab results RBC 3.68 M/mcL (4.19-5.50) L 05/05/16 05:00 Hgb 8.5 g/dL (12.9-16.9) L 05/07/16 03:46 Hct 26.1 % (37.5-50.1) L 05/07/16 03:46 RDW 15.6 % (11.5-14.5) H 05/05/16 05:00 ESR 79 mm/hr (0-10) H 05/04/16 03:57 Potassium 3.2 mEq/L (3.5-4.5) L 05/07/16 03:46 BUN 4 mg/dL (8-26) L 05/07/16 03:46 Creatinine 0.56 mg/dL (0.72-1.25) L 05/07/16 03:46 Calcium 7.8 mg/dL (8.6-10.8) L 05/07/16 03:46 C-Reactive Protein 68 mg/L (Less than 5) H 05/04/16 03:57 Serum Total Protein 5.1 g/dL (6.0-8.3) L 05/06/16 08:00 Albumin 1.9 g/dL (3.5-5.0) L 05/06/16 08:00 Albumin/Globulin Ratio 0.6 (1.1-2.2) L 05/06/16 08:00 Diabetes panel 05/07/16 Range/Units 03:46 Sodium 139 (136-145) mEq/L Potassium 3.2 L (3.5-4.5) mEq/L Chloride 109 (98-109) mEq/L Carbon Dioxide 21 (19-29) mEq/L BUN 4 L (8-26) mg/dL Creatinine 0.56 L (0.72-1.25) mg/dL Glucose 90 (70-99) mg/dL Calcium 7.8 L (8.6-10.8) mg/dL Calcium panel 05/07/16 Range/Units 03:46 Calcium 7.8 L (8.6-10.8) mg/dL Pituitary panel 05/07/16 Range/Units 03:46 Sodium 139 (136-145) mEq/L Potassium 3.2 L (3.5-4.5) mEq/L Chloride 109 (98-109) mEq/L Carbon Dioxide 21 (19-29) mEq/L BUN 4 L (8-26) mg/dL Creatinine 0.56 L (0.72-1.25) mg/dL Glucose 90 (70-99) mg/dL Calcium 7.8 L (8.6-10.8) mg/dL Adrenal panel 05/07/16 Range/Units 03:46 Sodium 139 (136-145) mEq/L Potassium 3.2 L (3.5-4.5) mEq/L Chloride 109 (98-109) mEq/L Carbon Dioxide 21 (19-29) mEq/L BUN 4 L (8-26) mg/dL Creatinine 0.56 L (0.72-1.25) mg/dL Glucose 90 (70-99) mg/dL Calcium 7.8 L (8.6-10.8) mg/dL All other labs normal. - Attending Attestation Dr Riggs was only inquiring as to input as to risk for surgery and if thought there was anything to do from surgical standpoint and currently no general surgery intervention needed. Will request records from [facility]. Do not charge for this encounter as I did not personally see patient.
[2016-05-05] MEDS: Vancomycin 1,000 MG in D5% in Water 250 ML IVPB SCH ×2 (07:04→18:27)
--- NOTE | 2016-05-05 07:17 | Anesthesia Evaluation PreOp ---
Date of Encounter: 05/05/16 Time of Encounter: 07:14 - Past History Planned Operation: L hip hemiarthroplasty Cardiac History: CHF, Other (echo 05/03: ef 50, nl rv, no valve dysfct. pt on chronic prednisone) Pulmonary History: Other (therapeutic lovenox) EVENT AV OPERATOR History: Denies Any Significant HX Other Medical History: Other (h/o open rosa elena, complicated by post operative gallbladder fossa abscess and mediastinal abscess. on abx x 3 weeks now, s/p fall with hip fx. PICC) Anesthesia History: No Prior Anesthetic Complications, Past Anesthesia ( cholecyst) Alcohol Use: none Drug use: none Medications and Allergies MOM Conc [Milk of Magnesia Conc] 30 ml PO PRN PRN 05/02/16 [History] Morphine Sulfate SR (12 HR) [MS Contin] 60 mg PO Q12HR 05/02/16 [History] Polyethylene Glycol 3350 [MiraLAX] 17 gm PO PRN PRN 05/02/16 [History] PredniSONE [Ana] 5 mg PO DAILY 05/02/16 [History] Tizanidine HCl [Zanaflex] 4 mg PO TID 05/02/16 [History] Topiramate [Topamax] 50 mg PO BID 05/02/16 [History] Amitriptyline [Elavil] 50 mg PO HS 05/03/16 [History] Escitalopram [Lexapro] 10 mg PO DAILY 05/03/16 [History] Sennosides/Docusate Sodium [Cvs Stool Softener-Laxative Tb] 1 tab PO BID PRN [History] Testosterone Cypionate [Testone Cik] 2.5 ml IM QMONTH 05/03/16 [History] Allergies No Known Allergies Allergy (Verified 05/03/16 09:02) - Meds/Allergy Pre-op Review Medications Reviewed: Yes (vanc ld at 0700) Allergies Reviewed: Yes Beta Blockers on Current Med List: No Anesthesia Results - Labs 05/05/16 05:00 05/05/16 05:00 - Imaging EKG: report reviewed (sr) Anesthesia Exam Vital Signs/O2 Sat/Glucose, Most Current Temp Pulse Resp BP Pulse Ox 05/05/16 06:28 98 F 101 18 118/76 95 Height: 1.75 Weight: 59 NPO (# of Hours): >8 - HEENT Pupil (Motor): Pupils equal, EOMI Mallampati: III Teeth: Edentulous (a few teeth on bottom), Poor dentition Oral Opening: Greater than 3 - EVENT AV OPERATOR LOC: Oriented EVENT AV OPERATOR Motor: Normal RUE, Normal LUE, Normal RLE, Normal LLE, Normal Face EVENT AV OPERATOR Sensory: Normal: RUE, LUE, RLE, LLE, Face - Cardiac Rhythm: Regular Murmur: None - Pulmonary Breath Sounds: bilateral Clear Respiratory Effort: Symmetrical Anesthesia Assess/Plan ASA Score: 3 Modified [place] Scale for Level of Consciousness: Cooperative, oriented, and tranquil Anesthetic Plan: General Monitoring Plan: Standard Monitors Recovery Plan: PACU
[2016-05-05] MEDS: Ipratropium/Albuterol Neb 3 ML IH SCH (08:00)
[2016-05-05] MEDS ORDERED: *HR* FentaNYL (PF) 100 MCG/2 ML VIAL ONE (08:56)
[2016-05-05] MEDS ORDERED: *HR* Propofol 200 MG/20 ML VIAL IVP ONE (08:56)
[2016-05-05] MEDS ORDERED: *HR* HYDROmorphone 2 MG/ML SYRINGE ONE (08:56)
[2016-05-05] MEDS ORDERED: *HR* Rocuronium Bromide 50 MG/5 ML VIAL ONE (08:57)
[2016-05-05] MEDS ORDERED: Dexamethasone 4 MG/ML VIAL ONE (08:57)
[2016-05-05] MEDS ORDERED: Ondansetron 4 MG/2 ML VIAL ONE (08:57)
[2016-05-05] MEDS ORDERED: Lidocaine -MPF 2% 2 ML VIAL ONE (08:57)
[2016-05-05] MEDS ORDERED: Water for inj. (sterile) 10 ML IV ONE (08:58)
[2016-05-05] MEDS ORDERED: *HR* Phenylephrine 10 MG/ML VIAL ONE (08:59)
[2016-05-05] MEDS ORDERED: Vancomycin 1,000 MG VIAL ONE (09:12)
[2016-05-05] MEDS ORDERED: *HR* Promethazine 25 MG/ML VIAL IVP PRN ×2 (09:13→13:39)
[2016-05-05] MEDS ORDERED: *HR* HYDROmorphone (PF) 1 MG/ML SYRINGE IVP PRN ×2 (09:13→13:39)
[2016-05-05] MEDS ORDERED: Ketamine *HR* 500 MG/10 ML MDV ONE (09:16)
[2016-05-05] MEDS: Ertapenem 1,000 MG in 0.9 % Sodium Chloride Mini Bag 100 ML IVPB SCH (09:28)
[2016-05-05] MEDS ORDERED: Hydrocortisone Sodium Succ 100 MG/2 ML VIAL ONE (09:59)
[2016-05-05] MEDS ORDERED: Ketorolac 30 MG/ML VIAL ONE (10:08)
[2016-05-05] MEDS ORDERED: *HR* Metoprolol 5 MG/5 ML VIAL IVP ONE (10:30)
[2016-05-05] MEDS ORDERED: EPHEDrine 50 MG/ML VIAL ONE (10:41)
[2016-05-05] MEDS: Topiramate 25 MG TABLET PO SCH ×2 (10:58→20:23)
[2016-05-05] MEDS: tiZANidine 4 MG TABLET PO SCH ×3 (10:58→20:23)
[2016-05-05] MEDS: predniSONE 5 MG TABLET PO SCH (10:58)
[2016-05-05] MEDS ORDERED: Neostigmine Methylsulfate 3 MG/3 ML SYRINGE ONE ×2 (11:33→14:41)
--- NOTE | 2016-05-05 12:54 | Anesthesia Evaluation Post Op ---
Date of Encounter: 05/05/16 Time of Encounter: 12:53 - Vital Signs Vital Signs: Vital Signs/O2 Sat/Glucose, Most Current Temp Pulse Resp BP Pulse Ox 05/05/16 12:46 118 12 118/75 97 05/05/16 12:36 99 F 110 12 110/66 95 05/05/16 12:26 112 8 106/67 100 05/05/16 12:16 112 8 109/73 100 05/05/16 12:06 99.5 F 110 8 100/55 98 - Lungs Lungs: Clear Ascult./Percussion - Airway Airway: Non-obstructed - Cardiovascular Baseline Rhythm (pt tachy preop, same rate now, pt exhibits profound hypotn with beta blockade. d/w surgeon to monitor uop for full resusc) - Mental Status Mental Status: Asleep with brisk response to light stimulation - Pain Pain Scale: 2 Pain Scale used: Walters-Keys (Faces) - Nausea Vomiting Nausea Vomiting: Not Present - Hydration Hydration: NPO - Discharge PostOp Status: Transfer Patient to floor
--- NOTE | 2016-05-05 13:20 | Operative Note ---
Date of procedure: 05/05/16 Pre-op diagnosis: Left hip femoral neck fracture, displaced Post-op diagnosis: same Procedure: Left hip hemiarthroplasty with a stage I molded antibiotic cement implant Implants: Biomet stage I molded hip implant Anesthesia: YOGESH Surgeon: Jese Riggs Specimen: Sent to pathology Condition: stable Disposition: PACU Procedure in Detail: Indications: The patient is 55-year-old community ambulator who fell 2 days ago sustaining a left hip displaced femoral neck fracture. Patient has active abdominal/mediastinal abscess status post cholecystectomy on 03/25/16. The abscesses drained on April 16 2016. The patient is currently on IV antibiotics through PICC line. Repeat CT scanshows fluid collection. The plan will be a two-stage process, with a planned molded implant using antibiotic cement spacer. Plans of conversion to a regular hemiarthroplasty once his infection is completely cleared. Procedure: The patient received IV antibiotics in the holding area. He was brought to the operating room, sign in was performed. The patient underwent general anesthesia on the hospital bed. He was then transferred to the OR table in supine position. The patient was positioned in the right lateral decubitus position, supported by pelvic supports. Bony prominences of the right lower extremity were well padded. The left lower extremity was then prepped and draped in usual sterile fashion. A timeout was performed. The level of the greater trochanter was palpated, a 10-12 cm curvilinear posterior incision was made, followed by Bovie dissection. The hip abductor was sharply split in line with its fibers with a curved Aleman scissors, incising the fascia over the gluteus jaimee also. The Charnley retractors were then positioned, making sure all not to go too deeply, to protect the sciatic nerve. The bursa over the greater trochanter was excised with Bovie electrocautery. The left hip was then internally rotated, putting the short external rotators on stretch. These were taken down from the insertion point with the Bovie cautery, starting from less of a trochanter and going approximately to the femoral neck. The capsule along the posterior femoral neck and head was then T' ed, giving exposure to the fractured femoral head/neck. The head was then removed with a power corkscrew, and cutting the ligamentum teres. The head was measured at 50 mm in diameter, and a size 48 mm diameter was chosen. The acetabulum was washed out of any bone fragments, and a trial head was placed giving a good fit. Next, the exposed fractured femoral neck was cleaned up with a rongeur, a coin box collector was then used to remove the lateral bone. The canal finder was then inserted. We then started broaching with a press-fit broaches from the Biomet echo tray. Starting with a press-fit 7, and moving up to a press-fit 9 and finally a press-fit 11, keeping the appropriate anteversion. The trial stem was well fixed with no toggling. We then trialed with a 48 mm head and 0 neck length. This gave a good fit with full extension, and stability with a hip abducted and internally rotated 60 degrees before it started subluxing out. The patient was about 5 mm longer on the left side, which is perfect which would make up for his leg length discrepancy. The broach was then removed. I had great difficulty removing the broach. The canal was irrigated out and suctioned. Next we made the molded implants. 2 bags of Palacos with gentamicin cement was mixed with 4 g of vancomycin. The cement was then slowly pressure injected into the Biomet 48 mm diameter femoral head mold. 1 bag of cement was mixed with 2 g of vancomycin, and injected into the Biomet size 11 femoral stem mold. We then waited for the cement to cure. The silicone molds were then removed. I was about to implant the press-fit stem when I noticed a small crack at the femoral neck. The crack appeared nondisplaced crack. I tapped the implant in place, make sure to maintain the correct version. Checking the crack below, it appeared slightly displaced. I then placed a Kinamed super cables around the greater trochanter and femoral neck, just above the lesser trochanter in standard technique. The 0 neck length was then opened up in place until the molded femoral head. The head was then tapped onto the stem. The head was then reduced into the acetabulum. The leg lengths felt fairly equal now, the patient had good extension of the left lower extremity, is able to flex the hip , adduct, and internally rotated up to 60 degrees before the hip started subluxing out. The capsule was then closed with # 2 FiberWire figure of 8 sutures. The leg was placed on Aleman stand, and the short external rotators were reattached to the bone using the FiberWire. The tensor fascia along with the gluteus fascia was closed with # 2 FiberWire [id number] sutures, followed by a running # 1 Vicryl suture posteriorly where the gluteus fascia thinned out. Once again irrigating the wound with pulse lavage. The deep fat layer was closed with 0 Vicryl, subcutaneous tissues with 2-0 Vicryl simple sutures, and finally the skin was closed with chacorta. Sterile dressings were applied. A hip abduction wedge was in place between the patient's legs. He was then rolled over into supine position and transferred back onto the hospital bed where she was extubated and taken to the recovery room in stable condition.
[2016-05-05] MEDS ORDERED: Ringers Solution, Lactated 1,000 ML IVC SCH (13:39)
[2016-05-05] MEDS ORDERED: Temazepam 15 MG CAPSULE PO PRN (13:39)
[2016-05-05] MEDS ORDERED: D5% in 0.45% NACL 1,000 ML IVC SCH (13:39)
[2016-05-05] MEDS ORDERED: Ipratropium/Albuterol Neb 3 ML IH PRN (13:39)
[2016-05-05] MEDS ORDERED: Bisacodyl 10 MG RECTAL SUPPOSITORY RC PRN (13:39)
[2016-05-05] MEDS ORDERED: Naloxone 0.4 MG/ML INJ IVP PRN ×2 (13:39)
[2016-05-05] MEDS ORDERED: Ondansetron 4 MG/2 ML VIAL IVP PRN ×2 (13:39)
[2016-05-05] MEDS ORDERED: Sennosides/Docusate Sodium TABLET PO PRN (13:39)
[2016-05-05] MEDS ORDERED: MOM Conc 10 ML UD.LIQ PO PRN (13:39)
[2016-05-05] MEDS ORDERED: Ipratropium/Albuterol Neb 3 ML IH SCH (15:00)
[2016-05-05] MEDS ORDERED: Ringers Solution, Lactated 1,000 ML IVC STA (16:58)
[2016-05-05] MEDS ORDERED: Ringers Solution, Lactated 500 ML IVC STA (17:04)
[2016-05-05] MEDS ORDERED: Ipratropium Neb 0.5 MG NEBULIZER IH PRN (17:09)
--- NOTE | 2016-05-05 17:10 | Internal Med Progress Note ---
Date of Encounter: 05/05/16 Time of Encounter: 17:00 - Assessment and plan (1) Fall Current Visit: Yes Status: Acute Assessment and plan: mechanical fall Qualifiers: Encounter type: initial encounter Qualified Code(s): W19.XXXA - Unspecified fall, initial encounter (2) Closed left hip fracture Current Visit: Yes Status: Acute Assessment and plan: 05/03: X-ray of hip shows displaced femoral neck fracture in his left hip. Orthopedic service is following. 05/05 Patient underwent left hip hemiarthroplasty with a stage I molded antibiotic cement implant. continue pain control. Qualifiers: Encounter type: initial encounter Qualified Code(s): S72.002A - Fracture of unspecified part of neck of left femur, initial encounter for closed fracture (3) Tachycardia Current Visit: Yes Status: Acute Assessment and plan: Per patient he has chronic tachycardia for the past 3-4 months. EKG showed sinus tachycardia heart rate 129. He complains of 6/10 pain in right hip. Denies any chest pain or shortness of breath. Give 500 mL of lactated Ringer's. Continue IV fluids at 75 ml per hour. start low dose metoprolol. cardiac monitoring. (4) Abscess, intra-abdominal, postoperative Current Visit: Yes Status: Chronic Assessment and plan: Patient recently hospitalized at [facility] and treated for right abdominal abscess and acute cholecystitis. He underwent open cholecystectomy followed by placement of percutaneous drainage for right abdominal abscess . He was discharged home on Invanz 1gm daily and oral Zyvox 600 mg daily from 04/25 to 06/04. CT of the chest revealed several small fluid collections within or immediately adjacent to the right pericardium, largest measuring 2.[address] abdomen and pelvis revealed walled off fluid collection in the gallbladder fossa compatible with abscess. 4.5 x 3.6 cm distal abdominal aortic aneurysm with ectasia of the proximal abdominal aorta. Appreciate surgery service input. Continue IV Invanz and oral Zyvox. Request the records from [facility] . Qualifiers: Encounter type: initial encounter Qualified Code(s): T81.4XXA - Infection following a procedure, initial encounter; K65.1 - Peritoneal abscess (5) Diastolic CHF Current Visit: No Status: Chronic Assessment and plan: compensated. patient not taking lasix for 3 months. Qualifiers: Congestive heart failure chronicity: chronic Qualified Code(s): I50.32 - Chronic diastolic (congestive) heart failure - Subjective Interval history: He underwent left hip hemiarthroplasty with a stage I molded antibiotic cement implant. Hr is 127. - Constitutional Vitals: Temp Pulse Resp BP Pulse Ox 97.8 F 127 18 96/65 98 05/05/16 16:40 05/05/16 16:40 05/05/16 16:55 05/05/16 16:40 05/05/16 16:55 General appearance: Present: cooperative, mild distress, A&O X 3, pleasant, underweight, loss of weight. Absent: no acute distress - Eye Eye exam: Present: PERRL, sclera anicteric - Neck Neck exam general surgery: Present: supple, trachea midline. Absent: lymphadenopathy - Respiratory Respiratory exam: Present: CTAB - Cardiovascular Cardiovascular exam: Present: tachycardia - GI/Abdominal GI/Abdominal exam: Present: normal bowel sounds, soft. Absent: distended, tenderness - Extremities Exam Extremities exam: Present: radial pulses palpable and symetrical. Absent: pedal edema - Back Exam Back exam: Absent: CVA tenderness (L), CVA tenderness (R) - Neurological Exam Neurological exam: Present: alert, oriented X3, strengths equal and symetr throughout. Absent: facial droop, speech deficit - Skin Skin exam: Absent: rash Internal Medicine: Result - Labs CBC & Chem 7: 05/05/16 05:00 05/05/16 05:00 Labs: Short CBC 05/05/16 Range/Units 05:00 WBC 8.0 (4.3-11.1) K/mcL Hgb 11.4 L (12.9-16.9) g/dL Hct 34.1 L (37.5-50.1) % Plt Count 144 (140-400) K/mcL Neutrophils # 4.3 (1.6-8.9) K/mcL BMP 05/05/16 05:00 Sodium 137 Potassium 3.6 Chloride 108 Carbon Dioxide 22 BUN 3 L Creatinine 0.59 L Glucose 100 H Calcium 8.4 L - Impressions Impressions Hip X-Ray 05/05/16 13:08 IMPRESSION: Left total hip arthroplasty in satisfactory alignment. D/ / Lani Severino MD / Lani Severino MD Interpreting Provider: Lani Severino MD - VTE Documentation of Mechanical Device: Venous foot pump, device Consult Discharge Plan - Plan Referrals: Carisa Ferguson MD [Primary Care Provider] -
[2016-05-05] MEDS: Ascorbic Acid 500 MG TABLET PO SCH (17:42)
[2016-05-05] MEDS ORDERED: Ringers Solution, Lactated 500 ML IVC ONE (22:00)
[2016-05-05] MEDS: Ipratropium Neb 0.5 MG NEBULIZER IH SCH (22:08)
[2016-05-05] MEDS: Acetaminophen 325 MG TABLET PO PRN (23:33)
[2016-05-05] MEDS ORDERED: 0.9 % Sodium Chloride 1,000 ML IVC ONE (23:57)
[2016-05-06] MEDS: *HR* HYDROcodone/Acet 5/325 mg TABLET PO PRN ×2 (00:07→14:38)
[2016-05-06] MEDS: *HR* Morphine 2 MG/ML SYRINGE IVP PRN ×3 (02:52→09:20)
[2016-05-06] MEDS: Ringers Solution, Lactated 1,000 ML IVC SCH ×2 (04:58→05:28)
[2016-05-06] MEDS: Ipratropium Neb 0.5 MG NEBULIZER IH SCH ×4 (05:02→22:47)
[2016-05-06] MEDS: Vancomycin 1,000 MG in D5% in Water 250 ML IVPB SCH ×2 (05:50→17:55)
[2016-05-06] MEDS: *HR* Morphine Sulfate SR (12 HR) 60 MG TABLET.ER PO SCH ×2 (05:50→19:44)
[2016-05-06] MEDS ORDERED: *HR* Enoxaparin 40 MG/0.4 ML SYRINGE SQ SCH (06:00)
[2016-05-06] MEDS: Topiramate 25 MG TABLET PO SCH ×2 (07:50→19:45)
[2016-05-06] MEDS: Multivit/Ca/Min/Fe/FA 1 TAB TABLET PO SCH (07:50)
[2016-05-06] MEDS: tiZANidine 4 MG TABLET PO SCH ×3 (07:51→19:45)
[2016-05-06] MEDS: predniSONE 5 MG TABLET PO SCH (07:51)
[2016-05-06] MEDS: Ascorbic Acid 500 MG TABLET PO SCH ×2 (07:51→17:55)
[2016-05-06] MEDS: *HR* OxyCODONE Immed Rel 5 MG TABLET PO PRN ×3 (07:56→21:52)
[2016-05-06 08:15] LABS: Hematocrit 25.6 % (37.5-50.1)
[2016-05-06 08:16] LABS: Hemoglobin 8.3 g/dL (12.9-16.9)
[2016-05-06 08:27] LABS: BUN/Creatinine Ratio 8 (6-26); Calcium 8.2 mg/dL (8.6-10.8); Carbon Dioxide 21 mEq/L (19-29); Chloride 110 mEq/L (98-109); Glucose 92 mg/dL (70-99); Osmolality,Calculated 287 (280-300); Potassium 3.7 mEq/L (3.5-4.5); Sodium 140 mEq/L (136-145); eGFR For African Americans > 60 (> 60); eGFR For Non-African Americans > 60 (> 60)
[2016-05-06 08:28] LABS: Blood Urea Nitrogen 5 mg/dL (8-26)
[2016-05-06 08:29] LABS: Albumin 1.9 g/dL (3.5-5.0); Albumin/Globulin Ratio 0.6 (1.1-2.2); Bilirubin,Direct 0.2 mg/dL (0.0-0.5); Bilirubin,Indirect 0.1 mg/dL (0.0-1.2); Bilirubin,Total 0.3 mg/dL (0.2-1.2); Globulin 3.2 g/dL (2.4-3.5); Total Protein 5.1 g/dL (6.0-8.3)
[2016-05-06] MEDS: Ertapenem 1,000 MG in 0.9 % Sodium Chloride Mini Bag 100 ML IVPB SCH (08:43)
[2016-05-06] MEDS: *HR* Enoxaparin 30 MG/0.3 ML SYRINGE SQ SCH ×2 (11:12→19:46)
--- NOTE | 2016-05-06 11:35 | Orthopedics Progress Note ---
Date of Encounter: 05/06/16 Time of Encounter: 11:15 - Assessment and Plan (1) Closed left hip fracture Current Visit: Yes Status: Acute Dressings c/d/i. Can be changed tomorrow. Continue in therapy. TTWB. Continue pain control per hospitalist. Will contact patient's general surgeon and ID physician to obtain records of the bacteria from abdominal abscess and length of time for treatment. This will guide the next stage for the removal of cement spacer and placement of hardware. Qualifiers: Encounter type: initial encounter Qualified Code(s): S72.002A - Fracture of unspecified part of neck of left femur, initial encounter for closed fracture Subjective Principal diagnosis: POD#1 S/P - Left hip stage I molded antibiotic cement spacer Interval history: Patient doing well today. Pain tolerable with medication. States therapy was working with him today and got him to chair. Denies any other complaints or events overnight. Objective Vital signs: Vital Signs Temp Pulse Resp BP Pulse Ox 05/06/16 11:00 98.4 F 91 20 85/56 99 05/06/16 10:48 16 99 05/06/16 06:31 98.6 F 103 20 110/68 100 05/06/16 05:02 14 97 05/06/16 04:17 98.2 F 99 16 94/53 98 05/05/16 23:34 98.2 F 98 16 82/50 98 05/05/16 22:08 17 98 05/05/16 20:25 97.8 F 122 18 99 05/05/16 20:07 116 100/57 100 05/05/16 16:55 18 98 05/05/16 16:40 97.8 F 127 15 96/65 99 05/05/16 15:45 97.4 F L 120 14 94/67 98 05/05/16 14:40 97.7 F 125 14 108/72 99 05/05/16 14:12 97.7 F 102 14 99/65 99 05/05/16 13:41 97.5 F L 122 17 108/67 99 05/05/16 13:40 97.5 F L 123 15 105/73 99 05/05/16 13:16 99 F 123 12 104/75 98 05/05/16 13:06 99 F 109 12 101/69 95 05/05/16 12:56 118 12 114/74 95 05/05/16 12:46 118 12 118/75 97 05/05/16 12:36 99 F 110 12 110/66 95 05/05/16 12:26 112 8 106/67 100 05/05/16 12:16 112 8 109/73 100 05/05/16 12:06 99.5 F 110 8 100/55 98 Intake and Output 05/05/16 05/06/16 05/06/16 23:59 07:59 15:59 Intake Total 900 / 900 1050 / 1050 275 / 275 Output Total 725 / 725 800 / 800 425 / 425 Balance 175 / 175 250 / 250 -150 / -150 Intake: IV Fluids 650 / 650 750 / 750 100 / 100 Lactated Ringers 1,000 ML 400 / 400 @ 75 mls/hr IVC .[id number] [facility] Rx#:[id number] INVanz 1,000 MG In 0.9 % 100 / 100 Sodium Chloride (Mini-Bag +) 100 ML @ 100 mls/hr IVPB DAILY [facility] Rx#: [id number] Vancocin 1,000 MG In 250 / 250 250 / 250 Dextrose 5% 250 ML @ 167 mls/hr IVPB Q12H [facility] Rx#: [id number] Oral 250 / 250 300 / 300 175 / 175 Output: Urine 725 / 725 800 / 800 425 / 425 Other: # Voids 1 Incision: clean and dry (dressings clean, dry, and intact. No calf pain. chronic discoloration to lower extremities. NV intact.) - Labs CBC & BMP: 05/06/16 08:00 05/06/16 08:00 Labs: Abnormal lab results RBC 3.68 M/mcL (4.19-5.50) L 05/05/16 05:00 Hgb 8.3 g/dL (12.9-16.9) L D 05/06/16 08:00 Hct 25.6 % (37.5-50.1) L 05/06/16 08:00 RDW 15.6 % (11.5-14.5) H 05/05/16 05:00 ESR 79 mm/hr (0-10) H 05/04/16 03:57 Chloride 110 mEq/L (98-109) H 05/06/16 08:00 BUN 5 mg/dL (8-26) L 05/06/16 08:00 Creatinine 0.60 mg/dL (0.72-1.25) L 05/06/16 08:00 Calcium 8.2 mg/dL (8.6-10.8) L 05/06/16 08:00 C-Reactive Protein 68 mg/L (Less than 5) H 05/04/16 03:57 Serum Total Protein 5.1 g/dL (6.0-8.3) L 05/06/16 08:00 Albumin 1.9 g/dL (3.5-5.0) L 05/06/16 08:00 Albumin/Globulin Ratio 0.6 (1.1-2.2) L 05/06/16 08:00 - VTE Documentation of Mechanical Device: Venous foot pump, device Consult Discharge Plan - Plan Referrals: Carisa Ferguson MD [Primary Care Provider] -
--- NOTE | 2016-05-06 15:35 | Internal Med Progress Note ---
Date of Encounter: 05/06/16 Time of Encounter: 15:00 - Assessment and plan (1) Fall Current Visit: Yes Status: Acute Assessment and plan: mechanical fall Qualifiers: Encounter type: initial encounter Qualified Code(s): W19.XXXA - Unspecified fall, initial encounter (2) Closed left hip fracture Current Visit: Yes Status: Acute Assessment and plan: 05/03: X-ray of hip shows displaced femoral neck fracture in his left hip. 05/05: Given history of persistent mediastinal and intra-abdominal abscesses, the patient underwent left hip hemiarthroplasty with a stage I molded antibiotic cement implant. continue pain control. Orthopedic service is following: requesting records from general surgeon and ID physician who treated his abscesses to decide on the time of removal of cement spacer and placement of hardware. Increase oxycodone to 10 mg every 4 hours when necessary. Avoid IV morphine as possible given episode of hypotension. Qualifiers: Encounter type: initial encounter Qualified Code(s): S72.002A - Fracture of unspecified part of neck of left femur, initial encounter for closed fracture (3) Tachycardia Current Visit: Yes Status: Acute Assessment and plan: Per patient he has chronic tachycardia for the past 3-4 months. EKG showed sinus tachycardia heart rate 129. He complains of 6/10 pain in right hip. Denies any chest pain or shortness of breath. resolved. decrease metoprolol. cardiac monitoring. (4) Abscess, intra-abdominal, postoperative Current Visit: Yes Status: Chronic Assessment and plan: Patient recently hospitalized at [facility] and treated for right abdominal abscess and acute cholecystitis. He underwent open cholecystectomy followed by placement of percutaneous drainage for right abdominal abscess . He was discharged home on Invanz 1gm daily and oral Zyvox 600 mg daily from 04/25 to 06/04. CT of the chest revealed several small fluid collections within or immediately adjacent to the right pericardium, largest measuring 2.[address] abdomen and pelvis revealed walled off fluid collection in the gallbladder fossa compatible with abscess. 4.5 x 3.6 cm distal abdominal aortic aneurysm with ectasia of the proximal abdominal aorta. Appreciate surgery service input. Continue IV Invanz and oral Zyvox. Qualifiers: Encounter type: initial encounter Qualified Code(s): T81.4XXA - Infection following a procedure, initial encounter; K65.1 - Peritoneal abscess (5) Diastolic CHF Current Visit: No Status: Chronic Assessment and plan: compensated. patient not taking lasix for 3 months. Qualifiers: Congestive heart failure chronicity: chronic Qualified Code(s): I50.32 - Chronic diastolic (congestive) heart failure - Subjective Interval history: Patient reports that pain medications help him but do not relieve his pain completely. - Constitutional Vitals: Temp Pulse Resp BP Pulse Ox 98.4 F 91 20 95/63 99 05/06/16 11:00 05/06/16 11:00 05/06/16 11:00 05/06/16 11:59 05/06/16 11:00 General appearance: Present: cooperative, mild distress, A&O X 3, pleasant, underweight, loss of weight. Absent: no acute distress - Respiratory Respiratory exam: Present: CTAB - Cardiovascular Cardiovascular exam: Present: RRR - GI/Abdominal GI/Abdominal exam: Present: normal bowel sounds, soft. Absent: distended, tenderness - Extremities Exam Extremities exam: Present: radial pulses palpable and symetrical. Absent: cyanotic, pedal edema - Back Exam Back exam: Absent: CVA tenderness (L), CVA tenderness (R) - Neurological Exam Neurological exam: Present: alert, oriented X3. Absent: facial droop, speech deficit Internal Medicine: Result - Labs CBC & Chem 7: 05/06/16 08:00 05/06/16 08:00 Labs: Short CBC 05/06/16 Range/Units 08:00 Hgb 8.3 L D (12.9-16.9) g/dL Hct 25.6 L (37.5-50.1) % BMP 05/06/16 08:00 Sodium 140 Potassium 3.7 Chloride 110 H Carbon Dioxide 21 BUN 5 L Creatinine 0.60 L Glucose 92 Calcium 8.2 L Liver Function 05/06/16 Range/Units 08:00 Total Bilirubin 0.3 (0.2-1.2) mg/dL Direct Bilirubin 0.2 (0.0-0.5) mg/dL AST 15 (5-34) Units/L ALT 9 (0-55) Units/L Alkaline Phosphatase 61 (38-126) Units/L Albumin 1.9 L (3.5-5.0) g/dL - Impressions Impressions Abdomen CT 05/04/16 14:24 IMPRESSION: 1. Walled off fluid collection in the gallbladder fossa compatible with abscess or less likely contained bile leak, status post cholecystectomy 2. Fluid throughout the visualized portion of the colon should be correlated with any history of diarrhea 3. 4.5 x 3.6 cm distal abdominal aortic aneurysm with ectasia of the proximal abdominal aorta D/ / Aj Avendaño MD / Aj Avendaño MD Interpreting Provider: Aj Avendaño MD - VTE Documentation of Mechanical Device: Venous foot pump, device Consult Discharge Plan - Plan Referrals: Carisa Ferguson MD [Primary Care Provider] -
--- NOTE | 2016-05-06 16:25 | Electrocardiograph Report ---
[facility] Test Date: 2016-05-05 Pat Name: Chapo Epps Department: 114 Room: [facility] Gender: M Weight Loss Counselor: : 1960 Requested By: Cosme Pereira Order Number: [id number] Reading MD: Leonard Cordova Measurements Intervals [place] Rate: 129 P: 59 RI: 118 QRS: 6 QRSD: 97 T: 37 QT: 311 QTc: 387 Interpretive Statements SINUS TACHYCARDIA WITH OCCASIONAL VENTRICULAR PREMATURE COMPLEXES ABNORMAL RHYTHM ECG Electronically Signed On 05-06-16 16:23:50 EST by Leonard Cordova
[2016-05-06] MEDS ORDERED: Ringers Solution, Lactated 1,000 ML IVC STA (17:11)
[2016-05-06 18:01] LABS: Hematocrit 23.4 % (37.5-50.1); Hemoglobin 7.7 g/dL (12.9-16.9)
[2016-05-06] MEDS ORDERED: 0.9 % Sodium Chloride 250 ML ONE (22:18)
[2016-05-07] MEDS: Acetaminophen 325 MG TABLET PO PRN (00:06)
[2016-05-07] MEDS: *HR* Morphine 2 MG/ML SYRINGE IVP PRN ×4 (00:11→22:45)
[2016-05-07] MEDS: Ipratropium Neb 0.5 MG NEBULIZER IH SCH ×4 (03:25→21:30)
[2016-05-07 04:06] LABS: BUN/Creatinine Ratio 7 (6-26); Calcium 7.8 mg/dL (8.6-10.8); Carbon Dioxide 21 mEq/L (19-29); Chloride 109 mEq/L (98-109); Glucose 90 mg/dL (70-99); Osmolality,Calculated 284 (280-300); Potassium 3.2 mEq/L (3.5-4.5); Sodium 139 mEq/L (136-145); eGFR For African Americans > 60 (> 60); eGFR For Non-African Americans > 60 (> 60)
[2016-05-07 04:13] LABS: Blood Urea Nitrogen 4 mg/dL (8-26); Hematocrit 26.1 % (37.5-50.1); Hemoglobin 8.5 g/dL (12.9-16.9)
[2016-05-07] MEDS: Vancomycin 1,000 MG in D5% in Water 250 ML IVPB SCH ×2 (05:48→18:05)
[2016-05-07] MEDS: *HR* Morphine Sulfate SR (12 HR) 60 MG TABLET.ER PO SCH ×2 (05:48→18:05)
[2016-05-07] MEDS: *HR* Enoxaparin 30 MG/0.3 ML SYRINGE SQ SCH ×2 (05:56→20:27)
[2016-05-07] MEDS: Multivit/Ca/Min/Fe/FA 1 TAB TABLET PO SCH (08:30)
[2016-05-07] MEDS: predniSONE 5 MG TABLET PO SCH (08:30)
[2016-05-07] MEDS: Ascorbic Acid 500 MG TABLET PO SCH ×2 (08:30→18:04)
[2016-05-07] MEDS: tiZANidine 4 MG TABLET PO SCH ×3 (08:30→20:26)
[2016-05-07] MEDS: Ertapenem 1,000 MG in 0.9 % Sodium Chloride Mini Bag 100 ML IVPB SCH (08:31)
[2016-05-07] MEDS: Topiramate 25 MG TABLET PO SCH ×2 (08:31→20:25)
[2016-05-07] MEDS: *HR* OxyCODONE Immed Rel 5 MG TABLET PO PRN ×3 (08:34→20:25)
--- NOTE | 2016-05-07 10:09 | Internal Med Progress Note ---
Date of Encounter: 05/07/16 Time of Encounter: 09:20 - Assessment and plan (1) Closed left hip fracture Current Visit: Yes Status: Acute Assessment and plan: Status post left hip hemiarthroplasty with stage I molded antibiotic cement implant. Supportive care. Will increase pain medications if pain remains uncontrolled. Continue to monitor vital signs closely as patient has had low blood pressure intermittently over the past couple of days. Currently blood pressure has been normal. High risk for complications due to use of intravenous narcotic medications for controlling pain. Qualifiers: Encounter type: initial encounter Qualified Code(s): S72.002A - Fracture of unspecified part of neck of left femur, initial encounter for closed fracture (2) Fall Current Visit: Yes Status: Acute Assessment and plan: Supportive care. Physical therapy. Patient will most likely need placement to skilled rehabilitation. Qualifiers: Encounter type: initial encounter Qualified Code(s): W19.XXXA - Unspecified fall, initial encounter (3) Tachycardia Current Visit: Yes Status: Chronic Assessment and plan: Improved heart rate. We will continue to monitor with telemetry. (4) Abscess, intra-abdominal, postoperative Current Visit: Yes Status: Chronic Assessment and plan: Continue IV antibiotics. Qualifiers: Encounter type: initial encounter Qualified Code(s): T81.4XXA - Infection following a procedure, initial encounter; K65.1 - Peritoneal abscess (5) Diastolic CHF Current Visit: No Status: Chronic Assessment and plan: No acute exacerbation. Qualifiers: Congestive heart failure chronicity: chronic Qualified Code(s): I50.32 - Chronic diastolic (congestive) heart failure - Subjective Interval history: Patient complains of worse pain in his left leg today. No abdominal pain. No nausea or vomiting. No constipation. Having normal bowel movements. No fever chills or night sweats reported. - Constitutional Vitals: Temp Pulse Resp BP Pulse Ox 97.9 F 105 16 124/71 98 05/07/16 06:38 05/07/16 06:38 05/07/16 06:38 05/07/16 06:38 05/07/16 06:38 General appearance: Present: cooperative, mild distress, A&O X 3, pleasant, underweight, loss of weight. Absent: no acute distress - Respiratory Respiratory exam: Present: CTAB. Absent: accessory muscle use, rales, rhonchi, wheezes - Cardiovascular Cardiovascular exam: Present: RRR, +S1, +S2. Absent: diastolic murmur, gallop, rubs, systolic murmur - GI/Abdominal GI/Abdominal exam: Present: normal bowel sounds, soft, no peritoneal signs. Absent: distended, tenderness - Extremities Exam Extremities exam: Present: warm, radial pulses palpable and symetrical. Absent : calf tenderness, cyanotic, pedal edema Additional comments: Tenderness at left hip and leg with decreased range of motion. - Neurological Exam Neurological exam: Present: CN II-XII intact, oriented X3, no focal deficits. Absent: facial droop, speech deficit - Psychiatric Psychiatric exam: Present: flat affect - Skin Skin exam: Present: dry, intact Internal Medicine: Result - Labs CBC & Chem 7: 05/07/16 03:46 05/07/16 03:46 Labs: Short CBC 05/06/16 05/07/16 Range/Units 17:50 03:46 Hgb 7.7 L 8.5 L (12.9-16.9) g/dL Hct 23.4 L 26.1 L (37.5-50.1) % BMP 05/07/16 03:46 Sodium 139 Potassium 3.2 L Chloride 109 Carbon Dioxide 21 BUN 4 L Creatinine 0.56 L Glucose 90 Calcium 7.8 L - Impressions Impressions Abdomen CT 05/04/16 14:24 IMPRESSION: 1. Walled off fluid collection in the gallbladder fossa compatible with abscess or less likely contained bile leak, status post cholecystectomy 2. Fluid throughout the visualized portion of the colon should be correlated with any history of diarrhea 3. 4.5 x 3.6 cm distal abdominal aortic aneurysm with ectasia of the proximal abdominal aorta D/ / Aj Avendaño MD / Aj Avendaño MD Interpreting Provider: Aj Avendaño MD - VTE Documentation of Mechanical Device: Venous foot pump, device Consult Discharge Plan - Plan Referrals: Carisa Ferguson MD [Primary Care Provider] - - Attending Attestation This document has been at least partially created by [employer] recognition technology by Dr. Joseph. Errors in grammar, wording or other phrases may exist. If errors are found after the documentation is signed, they will be addressed individually in the addendum section of this document when appropriate.
--- NOTE | 2016-05-07 15:50 | Orthopedics Progress Note ---
Date of Encounter: 05/07/16 Time of Encounter: 12:30 - Assessment and Plan (1) Closed left hip fracture Current Visit: Yes Status: Acute Dressings to be changed today. Continue in therapy. TTWB. Continue pain control per hospitalist. Will follow up with Natalie Davison PA-C in [facility] office in 2 weeks. Qualifiers: Encounter type: initial encounter Qualified Code(s): S72.002A - Fracture of unspecified part of neck of left femur, initial encounter for closed fracture Subjective Principal diagnosis: POD#2 S/P - Left hip stage I molded antibiotic cement spacer Interval history: Patient doing well today. Pain tolerable with medication. States therapy was working with him again today and made him very tired now. Denies any other complaints or events overnight. Objective Vital signs: Vital Signs Temp Pulse Resp BP Pulse Ox 05/07/16 15:37 98.1 F 78 16 98/63 96 05/07/16 14:30 108 110/72 05/07/16 11:27 92 104/66 05/07/16 11:05 98.0 F 101 18 94/62 96 05/07/16 10:41 91 99/56 95 05/07/16 06:38 97.9 F 105 16 124/71 98 05/07/16 04:00 98.7 F 103 17 108/58 99 05/07/16 03:27 16 99 05/07/16 01:30 98.9 F 116 16 119/59 98 05/06/16 22:58 99.9 F H 103 14 120/70 100 05/06/16 22:49 16 98 05/06/16 22:43 99.6 F 114 14 132/66 05/06/16 19:32 97.4 F L 111 19 102/51 95 05/06/16 15:58 16 97/53 97 Intake and Output 05/06/16 05/07/16 05/07/16 23:59 07:59 15:59 Intake Total 670 / 670 590 / 590 100 / 100 Output Total 625 / 625 550 / 550 375 / 375 Balance 45 / 45 40 / 40 -275 / -275 Intake: IV Fluids 250 / 250 250 / 250 100 / 100 INVanz 1,000 MG In 0.9 % 100 / 100 Sodium Chloride (Mini-Bag +) 100 ML @ 100 mls/hr IVPB DAILY [facility] Rx#: [id number] Vancocin 1,000 MG In 250 / 250 250 / 250 Dextrose 5% 250 ML @ 167 mls/hr IVPB Q12H [facility] Rx#: [id number] Oral 120 / 120 Blood Product 300 / 300 340 / 340 Rbcs Leuko Poor As-3 2nd 300 / 300 340 / 340 Unit [id number] Output: Urine 625 / 625 550 / 550 375 / 375 Other: Meal Dinner Percent of Meal Consumed 20% Stool Size Moderate Stool Consistency soft Stool Color Brown # Voids 1 1 Incision: clean and dry (dressing clean, dry, and intact. he has chronic tenderness to calf, good dorsiflexion of foot, NV intact) - Labs CBC & BMP: 05/07/16 03:46 05/07/16 03:46 Labs: Abnormal lab results RBC 3.68 M/mcL (4.19-5.50) L 05/05/16 05:00 Hgb 8.5 g/dL (12.9-16.9) L 05/07/16 03:46 Hct 26.1 % (37.5-50.1) L 05/07/16 03:46 RDW 15.6 % (11.5-14.5) H 05/05/16 05:00 ESR 79 mm/hr (0-10) H 05/04/16 03:57 Potassium 3.2 mEq/L (3.5-4.5) L 05/07/16 03:46 BUN 4 mg/dL (8-26) L 05/07/16 03:46 Creatinine 0.56 mg/dL (0.72-1.25) L 05/07/16 03:46 Calcium 7.8 mg/dL (8.6-10.8) L 05/07/16 03:46 C-Reactive Protein 68 mg/L (Less than 5) H 05/04/16 03:57 Serum Total Protein 5.1 g/dL (6.0-8.3) L 05/06/16 08:00 Albumin 1.9 g/dL (3.5-5.0) L 05/06/16 08:00 Albumin/Globulin Ratio 0.6 (1.1-2.2) L 05/06/16 08:00 - VTE Documentation of Mechanical Device: Venous foot pump, device Consult Discharge Plan - Plan Referrals: Carisa Ferguson MD [Primary Care Provider] -
[2016-05-08] MEDS: *HR* OxyCODONE Immed Rel 5 MG TABLET PO PRN ×2 (01:22→06:27)
[2016-05-08] MEDS: Ipratropium Neb 0.5 MG NEBULIZER IH SCH ×3 (03:27→16:37)
[2016-05-08 04:46] LABS: Basophils # 0.1 K/mcL (0.0-0.2); Basophils % 0.6 %; Eosinophils # 0.6 K/mcL (0.0-0.6); Eosinophils % 7.4 %; Hematocrit 27.5 % (37.5-50.1); Immature Granulocytes % 0.5 % (0-4); Lymphocytes # 2.3 K/mcL (0.6-4.6); Lymphocytes % 29.9 %; Mean Corpuscular HGB Conc 32.7 g/dL (31.6-35.5); Mean Corpuscular Hemoglobin 30.5 pg (28.0-33.3); Mean Corpuscular Volume 93.2 fL (83.0-100.0); Mean Platelet Volume 10.4 fL (9.4-12.4); Monocytes # 0.6 K/mcL (0.0-1.3); Monocytes % 7.7 %; Neutrophils # 4.2 K/mcL (1.6-8.9); Platelet Count 147 K/mcL (140-400); Red Blood Count 2.95 M/mcL (4.19-5.50); Segmented Neutrophils % 53.9 %
[2016-05-08 04:54] LABS: BUN/Creatinine Ratio 10 (6-26); Blood Urea Nitrogen 6 mg/dL (8-26); Carbon Dioxide 22 mEq/L (19-29); Chloride 108 mEq/L (98-109); Glucose 100 mg/dL (70-99); Osmolality,Calculated 280 (280-300); Potassium 3.3 mEq/L (3.5-4.5); Sodium 136 mEq/L (136-145); eGFR For African Americans > 60 (> 60); eGFR For Non-African Americans > 60 (> 60)
[2016-05-08] MEDS: Vancomycin 1,000 MG in D5% in Water 250 ML IVPB SCH (06:09)
[2016-05-08] MEDS: *HR* Morphine Sulfate SR (12 HR) 60 MG TABLET.ER PO SCH ×2 (06:09→18:14)
[2016-05-08] MEDS: *HR* Enoxaparin 30 MG/0.3 ML SYRINGE SQ SCH ×2 (07:49→18:16)
[2016-05-08] MEDS: tiZANidine 4 MG TABLET PO SCH ×2 (07:51→15:21)
[2016-05-08] MEDS: Topiramate 25 MG TABLET PO SCH (07:51)
[2016-05-08] MEDS: Ascorbic Acid 500 MG TABLET PO SCH ×2 (07:52→18:14)
[2016-05-08] MEDS: predniSONE 5 MG TABLET PO SCH (07:52)
[2016-05-08] MEDS: Multivit/Ca/Min/Fe/FA 1 TAB TABLET PO SCH (07:52)
--- NOTE | 2016-05-08 09:11 | Internal Med Progress Note ---
Date of Encounter: 05/08/16 Time of Encounter: 08:30 - Assessment and plan (1) Closed left hip fracture Current Visit: Yes Status: Acute Assessment and plan: Status post left hip hemiarthroplasty with stage I molded antibiotic cement implant. Pain remains poorly controlled. Will increase oxycodone to 15 mg every 4 hours as needed. Continue physical therapy. 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 High risk for complications related to use of intravenous narcotic medications. Qualifiers: Encounter type: initial encounter Qualified Code(s): S72.002A - Fracture of unspecified part of neck of left femur, initial encounter for closed fracture (2) Fall Current Visit: Yes Status: Acute Assessment and plan: Continue physical therapy fall precautions Qualifiers: Encounter type: initial encounter Qualified Code(s): W19.XXXA - Unspecified fall, initial encounter (3) Tachycardia Current Visit: Yes Status: Chronic Assessment and plan: Improved (4) Abscess, intra-abdominal, postoperative Current Visit: Yes Status: Chronic Assessment and plan: Continue IV antibiotics Qualifiers: Encounter type: initial encounter Qualified Code(s): T81.4XXA - Infection following a procedure, initial encounter; K65.1 - Peritoneal abscess (5) Diastolic CHF Current Visit: No Status: Chronic Assessment and plan: Not in acute exacerbation Qualifiers: Congestive heart failure chronicity: chronic Qualified Code(s): I50.32 - Chronic diastolic (congestive) heart failure (6) Acute blood loss as cause of postoperative anemia Current Visit: Yes Status: Acute Assessment and plan: Hemoglobin 9 Today. Improving. - Subjective Interval history: The patient was unable to sleep last night due to intense pain in his left leg. This has improved now but he still has some persistent pain rated 6 out of 10 in severity. Intravenous pain medications are helping him take the edge off the pain but not helping keep the pain better controlled. Denies any other complaints at this time. - Constitutional Vitals: Temp Pulse Resp BP Pulse Ox 97.9 F 89 16 109/71 96 05/08/16 07:45 05/08/16 07:45 05/08/16 07:45 05/08/16 07:45 05/08/16 07:45 General appearance: Present: cooperative, mild distress, A&O X 3, pleasant, underweight, loss of weight. Absent: no acute distress - Respiratory Respiratory exam: Present: CTAB. Absent: accessory muscle use, rales, rhonchi, wheezes - Cardiovascular Cardiovascular exam: Present: RRR, +S1, +S2. Absent: diastolic murmur, gallop, rubs, systolic murmur - GI/Abdominal GI/Abdominal exam: Present: normal bowel sounds, soft, no peritoneal signs. Absent: distended, tenderness - Extremities Exam Extremities exam: Present: tenderness (Left leg), warm, radial pulses palpable and symetrical. Absent: calf tenderness, cyanotic, pedal edema Internal Medicine: Result - Labs CBC & Chem 7: 05/08/16 04:20 05/08/16 04:20 Labs: Short CBC 05/08/16 Range/Units 04:20 WBC 7.8 (4.3-11.1) K/mcL Hgb 9.0 L (12.9-16.9) g/dL Hct 27.5 L (37.5-50.1) % Plt Count 147 (140-400) K/mcL Neutrophils # 4.2 (1.6-8.9) K/mcL BMP 05/08/16 04:20 Sodium 136 Potassium 3.3 L Chloride 108 Carbon Dioxide 22 BUN 6 L Creatinine 0.60 L Glucose 100 H Calcium 8.0 L - VTE Documentation of Mechanical Device: Venous foot pump, device Consult Discharge Plan - Plan Referrals: Carisa Ferguson MD [Primary Care Provider] - - Attending Attestation This document has been at least partially created by [employer] recognition technology by Dr. Joseph. Errors in grammar, wording or other phrases may exist. If errors are found after the documentation is signed, they will be addressed individually in the addendum section of this document when appropriate.
[2016-05-08] MEDS: Ertapenem 1,000 MG in 0.9 % Sodium Chloride Mini Bag 100 ML IVPB SCH (09:25)
[2016-05-08] MEDS: *HR* OxyCODONE Immed Rel 15 MG TABLET PO PRN ×3 (10:21→20:27)
--- NOTE | 2016-05-08 15:14 | Discharge Summary ---
Date of Encounter: 05/08/16 Time of Encounter: 15:10 - Discharge Diagnosis (1) Closed left hip fracture Priority: Primary Status: Acute Qualifiers: Encounter type: initial encounter Qualified Code(s): S72.002A - Fracture of unspecified part of neck of left femur, initial encounter for closed fracture (2) Fall Priority: Secondary Status: Acute Qualifiers: Encounter type: initial encounter Qualified Code(s): W19.XXXA - Unspecified fall, initial encounter (3) Tachycardia Priority: Secondary Status: Chronic (4) Abscess, intra-abdominal, postoperative Priority: Secondary Status: Chronic Qualifiers: Encounter type: initial encounter Qualified Code(s): T81.4XXA - Infection following a procedure, initial encounter; K65.1 - Peritoneal abscess (5) Diastolic CHF Priority: Secondary Status: Chronic Qualifiers: Congestive heart failure chronicity: chronic Qualified Code(s): I50.32 - Chronic diastolic (congestive) heart failure (6) Acute blood loss as cause of postoperative anemia Priority: Secondary Status: Acute - Discharge Medications Prescriptions: OxyCODONE Immed Rel [Roxicodone 15 MG] 15 mg PO Q4HR PRN #20 tablet PRN Reason: Pain Ertapenem [INVanz] 1,000 mg IVPB DAILY #28 vial Linezolid 600 MG/300 ML [Zyvox 600mg/300mL] 600 mg IV BID #56 bag Home Medications: MOM Conc [MILK OF MAGNESIA conc] 30 ml PO PRN PRN 05/02/16 [History] Polyethylene Glycol 3350 [MiraLAX] 17 gm PO PRN PRN 05/02/16 [History] PredniSONE [Ana] 5 mg PO DAILY 05/02/16 [History] Tizanidine HCl [Zanaflex] 4 mg PO TID 05/02/16 [History] Topiramate [Topamax] 50 mg PO BID 05/02/16 [History] Amitriptyline [Elavil] 50 mg PO HS 05/03/16 [History] Escitalopram [Lexapro] 10 mg PO DAILY 05/03/16 [History] Sennosides/Docusate Sodium [Cvs Stool Softener-Laxative Tb] 1 tab PO BID PRN [History] Testosterone Cypionate [Testone Cik] 2.5 ml IM QMONTH 05/03/16 [History] Ascorbic Acid [Vitamin C] 500 mg PO BIDWM tablet 05/08/16 [Rx] Enoxaparin [Lovenox] 30 mg SQ Q12HCO #0 syringe 05/08/16 [Rx] Ertapenem [INVanz] 1,000 mg IVPB DAILY #28 vial 05/08/16 [Rx] Linezolid 600 MG/300 ML [Zyvox 600mg/300mL] 600 mg IV BID #56 bag 05/08/16 [Rx] Morphine Sulfate SR (12 HR) [MS Contin] 60 mg PO Q12HR #20 05/08/16 [Rx] Multivit/Ca/Min/Fe/FA [Thera M Plus] 1 tab PO DAILY tablet 05/08/16 [Rx] OxyCODONE Immed Rel [Roxicodone 15 MG] 15 mg PO Q4HR PRN #20 tablet 05/08/16 [Rx ] Allergies/Adverse Reactions: Allergies No Known Allergies Allergy (Verified 05/03/16 09:02) Date of admission: 05/03/16 03:19 Primary care physician: Carisa Ferguson MD Consults: 05/03/16 03:25 OT [Consult to Occupational Therapy] [CONS] Routine Comment: Evaluate, develop and implement POC PT [Consult to Physical Therapy] [CONS] Routine Comment: Evaluate, develop and implement POC 05/03/16 03:45 Consult to Agriculture Extension Specialist [CONS] Routine Reason for SW Consult: DISCHARGE PLANNING 05/05/16 13:39 Consult to Nurse Navigator [CONS] Routine Comment: ortho navigator Consult to Occupational Therapy [CONS] Routine Comment: Evaluate, develop and implement POC Consult to Physical Therapy [CONS] Routine Comment: Evaluate, develop and implement POC Consult to Agriculture Extension Specialist [CONS] Routine Reason for SW Consult: post op joint replacement RT Post Op Consult [CONS] Routine Discharging clinician: Clemente Joseph Anticipated date of discharge: 05/08/16 - Patient Status Disposition: Transfer SNF Condition: Fair Functional capacity at discharge: bed bound Overall status at discharge: patient is progressing back to baseline - Discharge Instructions Instructions: Anemia (GEN) Follow Up With: Natalie Davison PAC [Physician Regional Account Director] - 05/20/16 11:00 am Carisa Ferguson MD [Primary Care Provider] - (in 1-2 weeks) - Diet and Activity Activity: as per physical therapy Diet: low fat, low cholesterol, low salt diet Hospital course: Mr. Epps is a 55 year old male who was being treated with long-term IV antibiotics for intra-abdominal abscess related to recent cholecystectomy was admitted here after he fell and injured his left hip resulting in a fracture of the femoral neck. Orthopedics was consulted. Given his intra-abdominal abscess , a left hip hemiarthroplasty with a molded antibiotic cement implant was placed. The patient continued to receive intravenous antibiotics during his stay here. He is slowly recovering from his surgery. He has been receiving physical therapy here. He has been recommended placement to skilled rehabilitation for physical therapy. [facility] and will be discharged there. He will continue to receive antibiotics till June 04 to complete treatment course. He is on ertapenem and Zyvox. For his hip fracture, he will follow up with orthopedics in 2 weeks. - Time Spent with Patient Total time spent providing and/or coordinating discharge services: Greater than 30 minutes (45 min) - Constitutional Vitals: Temp Pulse Resp BP Pulse Ox 97.5 F L 97 18 118/50 94 L 05/08/16 11:46 05/08/16 11:46 05/08/16 11:46 05/08/16 11:46 05/08/16 11:46 General appearance: Present: cooperative, mild distress, A&O X 3, pleasant, underweight, loss of weight. Absent: no acute distress - Neck Neck exam general surgery: Present: supple, trachea midline. Absent: lymphadenopathy - Cardiovascular Cardiovascular exam: Present: RRR, +S1, +S2. Absent: diastolic murmur, gallop, rubs, systolic murmur - GI/Abdominal GI/Abdominal exam: Present: normal bowel sounds, soft, no peritoneal signs. Absent: distended, tenderness - Extremities Exam Extremities exam: Present: tenderness (left hip), warm, radial pulses palpable and symetrical. Absent: calf tenderness, cyanotic, pedal edema - Neurological Exam Neurological exam: Present: CN II-XII intact, oriented X3, no focal deficits. Absent: pronater drift, facial droop, speech deficit - VTE Documentation of Mechanical Device: Venous foot pump, device - Attending Attestation This document has been at least partially created by [employer] Can recognition technology by Dr. Joseph. Errors in grammar, wording or other phrases may exist. If errors are found after the documentation is signed, they will be addressed individually in the addendum section of this document when appropriate.
[2016-05-08 15:16] VITALS: BP 106/64
--- NOTE | 2016-05-08 15:20 | Physician Discharge Referral ---
ExtendedCare Referral Info Provider in Charge after Transfer: PCP Institutional Level of Care: Skilled - Diagnosis (1) Closed left hip fracture Priority: Primary Status: Acute (2) Fall Priority: Secondary Status: Acute (3) Tachycardia Priority: Secondary Status: Chronic (4) Abscess, intra-abdominal, postoperative Priority: Secondary Status: Chronic (5) Diastolic CHF Priority: Secondary Status: Chronic (6) Acute blood loss as cause of postoperative anemia Priority: Secondary Status: Acute Prognosis: Fair Aware of Diagnosis: Patient Aware of Prognosis: Patient - Transfer Medications Prescriptions: OxyCODONE Immed Rel [Roxicodone 15 MG] 15 mg PO Q4HR PRN #20 tablet PRN Reason: Pain Ertapenem [INVanz] 1,000 mg IVPB DAILY #28 vial Home Medications: MOM Conc [MILK OF MAGNESIA conc] 30 ml PO PRN PRN 05/02/16 [History] Polyethylene Glycol 3350 [MiraLAX] 17 gm PO PRN PRN 05/02/16 [History] PredniSONE [Ana] 5 mg PO DAILY 05/02/16 [History] Tizanidine HCl [Zanaflex] 4 mg PO TID 05/02/16 [History] Topiramate [Topamax] 50 mg PO BID 05/02/16 [History] Amitriptyline [Elavil] 50 mg PO HS 05/03/16 [History] Escitalopram [Lexapro] 10 mg PO DAILY 05/03/16 [History] Sennosides/Docusate Sodium [Cvs Stool Softener-Laxative Tb] 1 tab PO BID PRN [History] Testosterone Cypionate [Testone Cik] 2.5 ml IM QMONTH 05/03/16 [History] Ascorbic Acid [Vitamin C] 500 mg PO BIDWM tablet 05/08/16 [Rx] Enoxaparin [Lovenox] 30 mg SQ Q12HCO #0 syringe 05/08/16 [Rx] Ertapenem [INVanz] 1,000 mg IVPB DAILY #28 vial 05/08/16 [Rx] Morphine Sulfate SR (12 HR) [MS Contin] 60 mg PO Q12HR #20 05/08/16 [Rx] Multivit/Ca/Min/Fe/FA [Thera M Plus] 1 tab PO DAILY tablet 05/08/16 [Rx] OxyCODONE Immed Rel [Roxicodone 15 MG] 15 mg PO Q4HR PRN #20 tablet 05/08/16 [Rx ] Allergies/Adverse Reactions: Allergies No Known Allergies Allergy (Verified 05/03/16 09:02) - Respiratory Orders Smoking Cessation: Smoking cessation has been advised. For more information, call the [place] Tobacco Quit Line at 7-018-QWDL-NOW. - Lab Orders Lab Orders: Other (include drug levels w/frequency) (CBC, BMP, ESR, CRP weekly while on antibiotics) - Ancillary Orders May consult with Dentist, Manager University, Warehouse Selector PRN - Advance Directives Code Status: Full Code - Mobility Orders Other (per PT? OT) - Rehabiliation Orders Rehab Orders: Evaluation for Physical Therapy, Evaluation for Occupational Therapy - Treatments Skin tear care topically daily PRN per policy - Diet Orders Cardiac CERTIFICATION: I certify that the transfer of the above named patient to an Extended Care Facility is necessary for the continuing treatment of the diagnosis listed. The above information is true and accurate reflection of patient's current condition. Confidential - Redisclosure prohibited without a patient's written consent.
[2016-05-08] MEDS ORDERED: Aminoglycoside Consult 1 EACH MC ONE (20:29)
== END 2016-05-08 20:30 | DRG 469 ==
LOC: 3NENU → SUATTDRO 05-03 03:19
PROVIDERS: ADMIT Family Medicine; ATTEND Internal Medicine

== ENCOUNTER 2016-08-15 10:25 | Inpatient (IN) ==
--- NOTE | 2016-08-15 10:41 | Anesthesia Evaluation PreOp ---
Date of Encounter: 08/15/16 Time of Encounter: 10:39 - Past History Planned Operation: Left Hip Spacer Removal, Hemiarthroplasty Cardiac History: CHF, HTN Pulmonary History: Former smoker (quit 1 year ago, smoke for 30 years), Snore, VERO Dx (does not use CPAP) FACILITY REHAB DIRECTOR History: Other (chronic back pain) Other Medical History: Denies Any Significant HX Anesthesia History: No Prior Anesthetic Complications, Past Anesthesia Alcohol Use: none Drug use: none Medications and Allergies MOM Conc [MILK OF MAGNESIA conc] 30 ml PO PRN PRN 05/02/16 [History] Polyethylene Glycol 3350 [MiraLAX] 17 gm PO PRN PRN 05/02/16 [History] PredniSONE [Ana] 5 mg PO DAILY 05/02/16 [History] Tizanidine HCl [Zanaflex] 4 mg PO TID 05/02/16 [History] Topiramate [Topamax] 50 mg PO BID 05/02/16 [History] Amitriptyline [Elavil] 50 mg PO HS 05/03/16 [History] Escitalopram [Lexapro] 10 mg PO DAILY 05/03/16 [History] Sennosides/Docusate Sodium [Cvs Stool Softener-Laxative Tb] 1 tab PO BID PRN [History] Testosterone Cypionate [Testone Cik] 2.5 ml IM QMONTH 05/03/16 [History] Ascorbic Acid [Vitamin C] 500 mg PO BIDWM tablet 05/08/16 [Rx] Enoxaparin [Lovenox] 30 mg SQ Q12HCO #0 syringe 05/08/16 [Rx] Ertapenem [INVanz] 1,000 mg IVPB DAILY #28 vial 05/08/16 [Rx] Linezolid 600 MG/300 ML [Zyvox Premix 600mg/300mL] 600 mg IV BID #56 bag [Rx] Morphine Sulfate SR (12 HR) [MS Contin] 60 mg PO Q12HR #20 05/08/16 [Rx] Multivit/Ca/Min/Fe/FA [Thera M Plus] 1 tab PO DAILY tablet 05/08/16 [Rx] OxyCODONE Immed Rel [Roxicodone 15 MG] 15 mg PO Q4HR PRN #20 tablet 05/08/16 [Rx ] Allergies No Known Allergies Allergy (Verified 08/15/16 11:06) - Meds/Allergy Pre-op Review Medications Reviewed: Yes Allergies Reviewed: Yes Beta Blockers on Current Med List: Yes If Beta Blockers taken, Date/Time (Last Dose taken): 08/15/2016 at 0630 Anesthesia Results - Labs Laboratory Tests 08/12/16 08/12/16 08/12/16 15:15 15:15 15:15 WBC 9.6 Hgb 15.0 Hct 47.1 Plt Count 241 PT 11.4 INR 1.1 APTT 27.9 Sodium 137 Potassium 3.9 BUN 7 L Creatinine 0.87 - Imaging EKG: report reviewed (05/05/2016 ST, occasional PVC's) Additional studies: 05/03/2016 Echo LVEF 50% mild LV diastolic dysfunction no significant valvular dysfunction Anesthesia Exam Height: 5'9'' Weight: 135 lbs NPO (# of Hours): 8 Pain Scale: 5 Pain Scale Used: Numeric (1 - 10) - HEENT Pupil (Motor): EOMI Mallampati: II Teeth: Normal, Prosthesis Denture Type: Upper: Complete Oral Opening: Less than or equal to 3 - FACILITY REHAB DIRECTOR LOC: Oriented FACILITY REHAB DIRECTOR Motor: Normal RUE, Normal LUE, Normal RLE, Normal LLE, Normal Face FACILITY REHAB DIRECTOR Sensory: Normal: RUE, LUE, LLE, Face, Deficit: RLE - Cardiac Rhythm: Regular Murmur: None - Pulmonary Breath Sounds: bilateral Clear Respiratory Effort: Symmetrical Anesthesia Assess/Plan ASA Score: 2 Modified [place] Scale for Level of Consciousness: Cooperative, oriented, and tranquil Anesthetic Plan: General Monitoring Plan: Standard Monitors Recovery Plan: PACU
[2016-08-15] MEDS ORDERED: Vancomycin 1,000 MG in D5% in Water 250 ML IVPB ONE ×2 (10:47→23:55)
--- NOTE | 2016-08-15 10:59 | History & Physical Report ---
Date of Encounter: 08/15/16 Time of Encounter: 10:58 24 Hour HP Update - Instructions Instructions: If the History and Physical is less than 30 days old and was completed prior to A.M. admission and or procedure and has NOT been updated on calendar day of procedure please complete this update prior to performing procedure. - Update Patient reports changes in Medical Condition: No Changes in examination, assessment, or condition: No Changes in Medication: No Preop tests/diagnostics Reviewed: Yes Surgery Remains Indicated: Yes Consent for Planned Operative Procedure(s) Verified: Yes - Pre-Operative Checklist Preoperative Checklist Indicated: Yes Prophylactic Antibiotic Ordered: Yes Is VTE Prophylaxis Indicated?: Yes
[2016-08-15] MEDS ORDERED: Ringers Solution, Lactated 1,000 ML IVC SCH (11:00)
[2016-08-15] MEDS ORDERED: *HR* Midazolam HCl 2 MG/2 ML VIAL ONE (11:11)
[2016-08-15] MEDS ORDERED: *HR* Rocuronium Bromide 50 MG/5 ML VIAL ONE (11:11)
[2016-08-15] MEDS ORDERED: Lidocaine -MPF 2% 2 ML VIAL ONE (11:11)
[2016-08-15] MEDS ORDERED: *HR* Phenylephrine 10 MG/ML VIAL ONE (11:11)
[2016-08-15] MEDS ORDERED: Ondansetron 4 MG/2 ML VIAL ONE (11:11)
[2016-08-15] MEDS ORDERED: Dexamethasone 4 MG/ML VIAL ONE (11:11)
[2016-08-15] MEDS ORDERED: *HR* Propofol 200 MG/20 ML VIAL IVP ONE (11:11)
[2016-08-15] MEDS ORDERED: *HR* FentaNYL (PF) 100 MCG/2 ML VIAL ONE ×2 (11:11→13:05)
[2016-08-15] MEDS ORDERED: Ertapenem 1,000 MG in 0.9 % Sodium Chloride Mini Bag 100 ML IVPB ONE (12:00)
[2016-08-15] MEDS ORDERED: EPHEDrine 50 MG/ML VIAL ONE (12:26)
[2016-08-15] MEDS ORDERED: *HR* Promethazine 25 MG/ML VIAL IVP PRN (13:16)
[2016-08-15] MEDS ORDERED: Neostigmine Methylsulfate 3 MG/3 ML SYRINGE ONE (13:58)
--- NOTE | 2016-08-15 14:18 | Operative Note ---
Date of procedure: 08/15/16 Pre-op diagnosis: Left hip staged hip arthroplasty with antibiotic spacer. Heterotopic ossif Post-op diagnosis: same (Left hip staged hip arthroplasty with antibiotic spacer. Heterotopic ossification.) Procedure: Left hip removal of antibiotic spacer. Implantation of hemiarthroplasty prosthesis. Resection of heterotopic ossification. Implants: Biomet Echo Anesthesia: YOGESH Surgeon: Jese Riggs Honest John Rocket Crew Member: Natalie Davison Estimated blood loss (cc): 200 Specimen: Cultures sent to microbiology. HO sent to pathology Condition: stable Disposition: PACU Procedure in Detail: Indications: The patient is a 56-year-old gentleman who previously underwent a staged antibiotic spacer placement for a left hip femoral neck fracture, 3 and half months ago. At the time the patient had an intra-abdominal abscess, and the and the antibiotic spacer was placed as prophylaxis. With the intent of staging insertion of a hemiarthroplasty implant once he was fully cleared of his infection. Procedure: The patient received IV antibiotics in the holding area. He was brought to the operating room, sign in was performed. The patient underwent general anesthesia on the hospital bed. He was then transferred to the OR table in supine position. The patient was positioned in the right lateral decubitus position, supported by pelvic supports. Bony prominences of the right lower extremity were well padded. The left lower extremity was then prepped and draped in usual sterile fashion. A timeout was performed. The old surgical scar was utilized. A 10-12 cm curvilinear posterior incision was made through this incision line, followed by Bovie dissection. The hip abductor was sharply split in line with its fibers with a curved Aleman scissors, incising the fascia over the gluteus jaimee also, cutting through FiberWire knots which removed. The Charnley retractors were then positioned, making sure all not to go too deeply, to protect the sciatic nerve. A new bursa had formed. This also was the level of the location of most of the heterotopic ossification. The bursa along with approximately 3 cemented length of bone was sharply excised with release of the Bovie flexor cautery and scalpel. The left hip was then internally rotated, putting the short external rotators on stretch. The external rotators were fully healed prior surgery. These were taken down from the insertion point with the Bovie cautery, starting from the lesser trochanter and going approximately to the femoral neck. FiberWire sutures were also removed. The capsule along the posterior femoral neck and head was then T'ed, giving exposure to the cement femoral head. The hip was now dislocated. The head was tapped off the stem. The metal neck was identified. It did not take down some dense fibrous overgrowth to expose the screw hole of the neck. The extractor was then screwed into this hole and tapped at the antibiotic cement implant. The Kinamed cable was still intact. The fracture of the proximal femur was identified and seen to be fully healed. The head size used was a 48 mm diameter. The acetabulum was washed and a trial head was placed giving a good fit. The stem removed was a press-fit 11. I started broaching with a 7 which fell into the proximal femur. It went up slowly to an 8, followed by 9, followed by 10, and finally 11 years some resistance. Each broach was inserted keeping the appropriate anteversion. The trial stem was felt well fixed but was toggling. The lateral removal was used to remove some of the dense tissue and bone laterally. Also excised some more heterotopic ossification. This gave a better path for insertion of the broach. It went up to size 12 is mild toggling. Finally went to size 13, the broach was slightly proud but very stable with no laxity. The broach was then removed. The canal was irrigated out and suctioned. The Biomet echo press-fit stem was then opened, using a size 13 mm pressfit stem , the implant was tapped in place, making sure to keep the correct anteversion. Once well positioned, we trialed with a 48 mm diameter trial head, and a -6 stem. Stability was checked along with leg length, it was felt that the leg length was irrigated. The patient was actually tight, difficult to fully extend the leg. I was able to flex the hip, adduct, and internally rotated up to 60 degrees before the hip started subluxing out. Even with no components in place, the patient was very tight in full extension. We also trialed a 47 mm head centimeter difference, no change in leg tightness and he seemed to dislocate slightly earlier. The trial components removed. The acetabulum was copiously irrigated with normal saline once again making sure it was well cleaned out. Next the 48 mm bipolar head was opened with a - 6 neck length. This was assembled and tapped in place on the stem. The hip was reduced, and stability was checked once again. We had good stability. The capsule was then closed with # 2 FiberWire figure of 8 sutures. The leg was placed on Aleman stand, and the short external rotators were reattached to the bone using the FiberWire. The tensor fascia along with the gluteus fascia was closed with FiberWire [id number] sutures. Once again irrigating the wound with pulse lavage. The deep fat layer was closed with 0 Vicryl, subcutaneous tissues with 2-0 Vicryl simple sutures, and finally the skin was closed with chacorta. Sterile dressings were applied. A hip abduction wedge was in place between the patient's legs. He was then rolled over into supine position and transferred back onto the hospital bed where she was extubated and taken to the recovery room in stable condition.
[2016-08-15] MEDS ORDERED: *HR* HYDROmorphone (PF) 1 MG/ML SYRINGE ONE ×2 (14:22→14:38)
[2016-08-15] MEDS: *HR* HYDROmorphone (PF) 1 MG/ML SYRINGE IVP PRN ×6 (14:25→23:39)
--- NOTE | 2016-08-15 15:05 | Anesthesia Evaluation Post Op ---
Date of Encounter: 08/15/16 Time of Encounter: 15:04 - Vital Signs Vital Signs: Vital Signs/O2 Sat, Most Current Temp Pulse Resp BP Pulse Ox 97.8 F 82 16 113/81 98 08/15/16 14:44 08/15/16 14:54 08/15/16 14:54 08/15/16 14:54 08/15/16 14:54 - Lungs Lungs: Clear Ascult./Percussion - Airway Airway: Non-obstructed - Cardiovascular Regular Rate - Mental Status Mental Status: Asleep with brisk response to light stimulation - Pain Pain Scale: 5 Pain Scale used: Numeric (1 - 10) - Nausea Vomiting Nausea Vomiting: Not Present - Hydration Hydration: Ice chips, Has not voided - Discharge PostOp Status: Transfer Patient to floor
[2016-08-15] MEDS ORDERED: Naloxone 0.4 MG/ML INJ IVP PRN (15:41)
[2016-08-15] MEDS ORDERED: *HR* OxyCODONE Immed Rel 5 MG TABLET PO PRN (15:41)
[2016-08-15] MEDS ORDERED: MOM Conc 10 ML UD.LIQ PO PRN (15:41)
[2016-08-15] MEDS ORDERED: Temazepam 15 MG CAPSULE PO PRN (15:41)
[2016-08-15] MEDS ORDERED: D5% in 0.45% NACL 1,000 ML IVC SCH (15:41)
[2016-08-15] MEDS: Ringers Solution, Lactated 1,000 ML IVC SCH (16:44)
[2016-08-15] MEDS: Ascorbic Acid 500 MG TABLET PO SCH (16:44)
[2016-08-15] MEDS: *HR* OxyCODONE Immed Rel 15 MG TABLET PO PRN (16:44)
[2016-08-15] MEDS: Sennosides/Docusate Sodium TABLET PO SCH (19:43)
[2016-08-15] MEDS: Topiramate 25 MG TABLET PO SCH (19:43)
[2016-08-15] MEDS: Ondansetron 4 MG/2 ML VIAL IVP PRN (23:40)
[2016-08-16] MEDS ORDERED: Ondansetron 4 MG/2 ML VIAL IVP ONE (00:46)
[2016-08-16] MEDS ORDERED: Mag Hydrox/Al Hydrox/Simeth 30 ML UDC PO ONE (03:20)
[2016-08-16] MEDS ORDERED: *HR* Promethazine 25 MG/ML VIAL IVP ONE (03:20)
[2016-08-16] MEDS: *HR* HYDROmorphone (PF) 1 MG/ML SYRINGE IVP PRN ×5 (05:01→22:35)
[2016-08-16 05:16] LABS: Hematocrit 41.5 % (37.5-50.1); Hemoglobin 13.4 g/dL (12.9-16.9)
[2016-08-16 05:29] LABS: BUN/Creatinine Ratio 10 (6-26); Blood Urea Nitrogen 7 mg/dL (8-26); Calcium 8.2 mg/dL (8.6-10.8); Carbon Dioxide 25 mEq/L (19-29); Chloride 101 mEq/L (98-109); Glucose 87 mg/dL (70-99); Osmolality,Calculated 281 (280-300); Potassium 3.3 mEq/L (3.5-4.5); Sodium 137 mEq/L (136-145); eGFR For African Americans > 60 (> 60); eGFR For Non-African Americans > 60 (> 60)
[2016-08-16] MEDS: *HR* OxyCODONE Immed Rel 15 MG TABLET PO PRN ×3 (06:07→17:18)
[2016-08-16] MEDS: *HR* Enoxaparin 30 MG/0.3 ML SYRINGE SQ SCH ×2 (06:07→17:25)
[2016-08-16] MEDS: Ondansetron 4 MG/2 ML VIAL IVP PRN ×3 (07:41→22:35)
[2016-08-16] MEDS: Metoprolol XL (24 HR) Succ 50 MG TAB.ER.24H PO SCH (07:52)
[2016-08-16] MEDS: Multivit/Ca/Min/Fe/FA 1 TAB TABLET PO SCH ×2 (07:53→09:48)
[2016-08-16] MEDS: Sennosides/Docusate Sodium TABLET PO SCH ×3 (07:53→22:55)
[2016-08-16] MEDS: Ascorbic Acid 500 MG TABLET PO SCH ×3 (07:54→17:18)
[2016-08-16] MEDS: Ringers Solution, Lactated 1,000 ML IVC SCH (07:54)
[2016-08-16] MEDS: Topiramate 25 MG TABLET PO SCH ×2 (07:56→22:54)
--- NOTE | 2016-08-16 09:49 | Orthopedics Progress Note ---
Date of Encounter: 08/16/16 Time of Encounter: 08:15 - Assessment and Plan (1) Intractable nausea and vomiting Current Visit: Yes Status: Acute Discussed with hospitalist who agreed to consult on patient for possible GI workup for hematemesis. Will follow hospitalist recommendations. Qualifiers: Vomiting type: cyclical vomiting Qualified Code(s): G43.A1 - Cyclical vomiting, intractable (2) Closed left hip fracture Current Visit: No Status: Chronic POD#1 - s/p left hip hemiarthroplasty Patient has had pain in left hip since surgery but he has also had persistent vomiting overnight which contributes to muscle strain on hip. Continue to ice left hip. Dressings to be changed tomorrow. Patient declined therapy yesterday. I discussed the importance of allowing therapy to work with him and patient expressed understanding. WBAT. Continue DVT prophylaxis. Qualifiers: Encounter type: subsequent encounter Fracture healing: with routine healing Qualified Code(s): S72.002D - Fracture of unspecified part of neck of left femur, subsequent encounter for closed fracture with routine healing Subjective Principal diagnosis: POD#1 s/p left hip hemiarthroplasty Interval history: Patient has had multiple episodes of emesis throughout the night despite anti- emetics being given. Questionable brown emesis per nursing, per patient emesis has been mostly green. States he was having chest pain described as burning in midchest up to throat.General aching chest pain but denies any sharp or radiating pains. Continue to have pain in left hip. Denies calf pain, SOB, fevers, N/T to extremities. Objective Vital signs: Vital Signs Temp Pulse Resp BP Pulse Ox 08/16/16 07:43 99 08/16/16 06:35 98.6 F 85 16 120/73 99 08/16/16 03:30 98.7 F 85 17 127/68 99 08/16/16 00:10 99 F 97 17 126/80 98 08/15/16 18:57 97.9 F 98 17 111/69 100 08/15/16 18:10 97.6 F 88 17 115/72 88 08/15/16 17:11 97.8 F 88 17 105/70 99 08/15/16 16:10 97.9 F 98 16 129/65 97 08/15/16 15:45 97.8 F 92 16 115/62 97 08/15/16 15:14 97.8 F 85 16 106/59 98 08/15/16 15:04 80 15 118/71 98 08/15/16 14:54 82 16 113/81 98 08/15/16 14:44 97.8 F 90 16 105/72 100 08/15/16 14:34 88 16 122/72 100 08/15/16 14:24 83 16 118/74 100 08/15/16 14:14 97.6 F 74 12 111/75 100 08/15/16 10:58 98.8 F 70 16 100/70 94 Intake and Output 08/15/16 08/16/16 08/16/16 23:59 07:59 15:59 Intake Total 1000 / 1000 100 / 100 Output Total 1400 / 1400 650 / 650 Balance -1400 / -1400 350 / 350 100 / 100 Intake: IV Fluids 1000 / 1000 100 / 100 Lactated Ringers 1,000 ML 1000 / 1000 @ 75 mls/hr IVC .[id number] JULIAN Rx#:[id number] Potassium Chloride 10 mEq 100 / 100 /100mL 10 meq In 100 ml @ 100 mls/hr IVPB Q1H JULIAN Rx#:[id number] Output: Urine 1400 / 1400 250 / 250 Emesis 100 / 100 Gastric Drainage 300 / 300 Incision: clean and dry (dressings c/d/i with no visible drainage or surrounding erythema, ROM hip restricted,good dorsiflexion of foot, no calf tenderness) - Labs CBC & BMP: 08/16/16 05:05 08/16/16 05:05 Labs: Abnormal lab results Potassium 3.3 mEq/L (3.5-4.5) L 08/16/16 05:05 BUN 7 mg/dL (8-26) L 08/16/16 05:05 Calcium 8.2 mg/dL (8.6-10.8) L 08/16/16 05:05 - VTE Documentation of Mechanical Device: Intermittent pneumatic compression device Consult Discharge Plan - Plan Referrals: Carisa Ferguson MD [Primary Care Provider] -
--- NOTE | 2016-08-16 10:48 | Internal Medicine Consult Note ---
Date of Encounter: 08/16/16 Time of Encounter: 10:30 - Assessment and Plan (1) Intractable nausea and vomiting Current Visit: Yes Status: Acute Assessment and plan: Will treat with antiemetics. Keep nothing by mouth. Monitor vital signs closely. Gentle IV hydration. If this does not improve with antiemetics, will get CT scan of the abdomen and pelvis to look for any obstruction. Qualifiers: Vomiting type: cyclical vomiting Qualified Code(s): G43.A1 - Cyclical vomiting, intractable (2) Reflux esophagitis Current Visit: Yes Status: Acute Assessment and plan: This is likely contributing to the patient's nausea and vomiting. We will treat symptomatically. Place patient on PPI. GI cocktail as needed. (3) Gastritis Current Visit: Yes Status: Acute Assessment and plan: Patient with epigastric pain likely related to gastritis. We will treat with PPI and antiemetics. Qualifiers: Gastritis type: other gastritis Chronicity: acute Gastritis bleeding: presence of bleeding unspecified Qualified Code(s): K29.00 - Acute gastritis without bleeding (4) Closed left hip fracture Current Visit: No Status: Chronic Assessment and plan: Status post left hip hemiarthroplasty as a staged procedure. Orthopedics following and managing. Qualifiers: Encounter type: subsequent encounter Fracture healing: with routine healing Qualified Code(s): S72.002D - Fracture of unspecified part of neck of left femur, subsequent encounter for closed fracture with routine healing Internal Medicine - CN: HPI - Data of Consult Consult date: 08/16/16 Requesting Physician: Jese Riggs MD - Consult Narrative Reason for consult: Intractable nausea and vomiting, heartburn History of present illness: Mr. Epps is a 56 year old male patient with history of osteoporosis, arthritis, cholecystectomy complicated by postsurgical abscess formation requiring intravenous antibiotics for about 2 months was admitted here for left hip staged arthroplasty with antibiotic spacer. Patient underwent this procedure yesterday and underwent implantation of a hemiarthroplasty prosthesis. However, during recovery he has been having intractable nausea and vomiting since last night. He is also having burning pain in his epigastric region and radiating up into his chest wall associated with it. He has had multiple episodes of emesis and according to the patient he noticed some blood clots also although most of the emesis was greenish colored. He has not had any bowel movement since his surgery. He has been on a liquid diet and has just eaten some ice cream and brought since his surgery. He has not had issues with gastroesophageal reflux disease or ulcers in the past. No palpitations. No shortness of breath. He complains of mainly left hip pain related to his surgery and some discomfort in his abdomen due to recurrent vomiting. Past Med Surg Social Fam HX - Past Medical History Attestation: Yes The following information was validated with the patient. Source: patient, old records reviewed Medical history: arthritis, CHF, hypertension, osteoporosis, other Psychiatric history: no psych history - Past Surgical History Surgical History: cholecystectomy, hip replacement, orthopedic, other, other - Social History Smoking Status: Former smoker Smokeless Tobacco Status: No Alcohol use: none Drug use: none - Family History Mother History Unknown: Yes Living Status: Hx Family Cardiac Disorders: Yes Hx Family Respiratory Disorders: No Hx Family Cancer: No Hx Family GI Disorders: No Hx Family Endocrine Disorder: Yes Hx Family Neuromuscular Disorders: No Hx Family Neurologic Disorders: No Hx Family HEENT Disorders: No Hx Family Autoimmune Disorders: No - Constitutional Constitutional: fatigue, malaise, no fever(s), no weakness, no weight gain - EENT Eyes: no blurry vision, no discharge, no loss of peripheral vision, no loss of vision Nose, mouth and throat: no change in voice, no dry mouth, no dysphagia, no sore throat, no throat swelling, no tongue swelling - Cardiovascular Cardiovascular ROS IM: no chest pain, no dyspnea, no dyspnea on exertion, no lightheadedness, no orthopnea, no palpitations, no paroxysmal nocturnal dyspnea - Respiratory Respiratory: no dyspnea, no hemoptysis, no dyspnea on exertion, no excessive phlegm production, no change in phlegm color - Gastrointestinal Gastrointestinal: abdominal pain, dyspepsia, heartburn, nausea, vomiting - Musculoskeletal Musculoskeletal ROS IM: other (Left hip pain), no arthralgias, no atrophy, no back pain - Integumentary Integumentary IM: no erythema, no rash, no skin ulcer - Neurological Neurological ROS: no abnormal movements, no abnormal speech, no behavioral changes, no confusion, no focal weakness, no loss of vision, no memory loss, no numbness, no paresthesias - Psychiatric Psychiatric: no behavioral changes, no confusion - Hematologic/Lymphatic Hematologic/Lymphatic: no easy bleeding - Allergic/Immunologic Allergic/Immunologic: no tongue swelling, no throat swelling Internal Medicine - CN: Meds MOM Conc [MILK OF MAGNESIA conc] 30 ml PO QID PRN 05/02/16 [History] Polyethylene Glycol 3350 [MiraLAX] 17 gm PO DAILY PRN 05/02/16 [History] Tizanidine HCl [Zanaflex] 4 mg PO TID PRN 05/02/16 [History] Topiramate [Topamax] 50 mg PO BID 05/02/16 [History] Amitriptyline [Elavil] 50 mg PO HS 05/03/16 [History] Testosterone Cypionate [Testone Cik] 1 ml IM TH 05/03/16 [History] Morphine Sulfate SR (12 HR) [MS Contin] 60 mg PO Q12HR #20 05/08/16 [Rx] Furosemide [Lasix] 20 mg PO DAILY 08/15/16 [History] Metoprolol XL (24 HR) Succ [Toprol XL] 50 mg PO DAILY 08/15/16 [History] Morphine Immed Rel [Morphine Sulfate] 15 mg PO TID PRN 08/15/16 [History] Multivitamin [Multi-Day Vitamins] 1 each PO DAILY 08/15/16 [History] Potassium Chloride [K-Tab ER] 20 meq PO DAILY 08/15/16 [History] Allergies No Known Allergies Allergy (Verified 08/15/16 11:06) Internal Medicine - CN: Exam - Constitutional Vitals: Temp Pulse Resp BP Pulse Ox 98.6 F 85 16 120/73 99 08/16/16 06:35 08/16/16 06:35 08/16/16 06:35 08/16/16 06:35 08/16/16 07:43 General appearance IM: Present: cooperative, mild distress, A&O X 3, answers questions appropriately - Eye Eye exam: Present: EOMI, PERRL - ENT ENT exam: Present: mucous membranes moist - Respiratory Respiratory exam: Absent: chest wall tenderness, decreased breath sounds, prolonged expiratory phase, respiratory distress - Cardiovascular Cardiovascular exam IM: Present: RRR, +S1, +S2. Absent: tachycardia - GI/Abdominal GI/Abdominal exam IM: Present: normal bowel sounds, soft, tenderness (Epigastric ). Absent: distended - Extremities Exam Extremities exam IM: Present: radial pulses palpable and symetrical. Absent: pedal edema Additional comments: Tenderness and decreased range of motion of the left hip - Neurological Exam Neurological exam: Present: alert, oriented X3, no focal deficits. Absent: facial droop, speech deficit - Psychiatric Psychiatric exam: Present: normal affect, normal mood - Skin Skin exam IM: Present: dry, normal color Internal Medicine - CN: Reslt - Labs CBC & Chem 7: 08/16/16 05:05 08/16/16 05:05 Labs: Short CBC 08/16/16 Range/Units 05:05 Hgb 13.4 D (12.9-16.9) g/dL Hct 41.5 (37.5-50.1) % BMP 08/16/16 05:05 Sodium 137 Potassium 3.3 L Chloride 101 Carbon Dioxide 25 BUN 7 L Creatinine 0.72 Glucose 87 Calcium 8.2 L - EKG Data -: EKG Interpreted by Myself EKG shows normal: sinus rhythm - EKG Data EKG comments: 08/16/16 10:55 With PVCs - Impressions Impressions Hip X-Ray 08/15/16 00:00 IMPRESSION: Baseline study status post total left hip arthroplasty without evidence of acute postoperative complication. D/ / 08/15/2016 14:52:09 Seun Trejo MD / Sue Coley Interpreting Provider: Seun Trejo MD Consult Discharge Plan - Plan Referrals: Carisa Ferguson MD [Primary Care Provider] - - Attending Attestation This document has been at least partially created by [employer] recognition technology by Dr. Joseph. Errors in grammar, wording or other phrases may exist. If errors are found after the documentation is signed, they will be addressed individually in the addendum section of this document when appropriate.
[2016-08-16] MEDS ORDERED: GI Cocktail 40 ML EACH PO ONE (10:59)
[2016-08-16] MEDS ORDERED: 0.9 % Sodium Chloride w KCl 20 MEQ/1,000 ML MLS IVC SCH ×3 (11:00→22:50)
[2016-08-16] MEDS: Metoclopramide 10 MG/2 ML VIAL IVP PRN ×2 (11:03→17:19)
[2016-08-16] MEDS: Pantoprazole 40 MG VIAL IVP SCH ×2 (12:25→17:18)
[2016-08-16] MEDS ORDERED: Milk and Molasses Enema 200 ML RC ONE (22:49)
[2016-08-16] MEDS ORDERED: Bisacodyl 10 MG RECTAL SUPPOSITORY RC PRN (22:49)
[2016-08-17] MEDS: Ondansetron 4 MG/2 ML VIAL IVP SCH ×4 (00:25→17:12)
[2016-08-17] MEDS: *HR* OxyCODONE Immed Rel 15 MG TABLET PO PRN ×2 (00:26→06:16)
[2016-08-17] MEDS: *HR* HYDROmorphone (PF) 1 MG/ML SYRINGE IVP PRN (05:06)
[2016-08-17 05:22] LABS: Hematocrit 38.2 % (37.5-50.1)
[2016-08-17 05:31] LABS: BUN/Creatinine Ratio 14 (6-26); Blood Urea Nitrogen 9 mg/dL (8-26); Calcium 7.6 mg/dL (8.6-10.8); Carbon Dioxide 24 mEq/L (19-29); Chloride 107 mEq/L (98-109); Glucose 81 mg/dL (70-99); Osmolality,Calculated 282 (280-300); Potassium 3.7 mEq/L (3.5-4.5); Sodium 137 mEq/L (136-145); eGFR For African Americans > 60 (> 60); eGFR For Non-African Americans > 60 (> 60)
[2016-08-17 05:36] LABS: Hemoglobin 11.7 g/dL (12.9-16.9)
[2016-08-17] MEDS: *HR* Enoxaparin 30 MG/0.3 ML SYRINGE SQ SCH ×2 (06:17→17:13)
[2016-08-17] MEDS: Pantoprazole 40 MG VIAL IVP SCH ×2 (06:17→17:13)
[2016-08-17] MEDS ORDERED: Bisacodyl 10 MG RECTAL SUPPOSITORY RC SCH (09:00)
[2016-08-17] MEDS: Ascorbic Acid 500 MG TABLET PO SCH ×2 (09:13→17:12)
[2016-08-17] MEDS: Metoprolol XL (24 HR) Succ 50 MG TAB.ER.24H PO SCH (09:13)
[2016-08-17] MEDS: Topiramate 25 MG TABLET PO SCH ×2 (09:13→19:34)
[2016-08-17] MEDS: *HR* OxyCODONE Immed Rel 5 MG TABLET PO PRN ×2 (11:02→19:34)
[2016-08-17] MEDS ORDERED: *HR* OxyCODONE/APAP 5/325 TABLET PO PRN (14:30)
--- NOTE | 2016-08-17 14:44 | Orthopedics Progress Note ---
Date of Encounter: 08/17/16 Time of Encounter: 14:41 - Assessment and Plan (1) Decubital ulcer Current Visit: Yes Status: Acute Patient has dressing in place. He needs to get out of bed more often Decubiti precautions Qualifiers: Pressure ulcer location: sacral region Pressure ulcer stage: stage 1 Qualified Code(s): L89.151 - Pressure ulcer of sacral region, stage 1 (2) Closed left hip fracture Current Visit: No Status: Chronic Postoperative day #2, stable Once again reinforced patient that he needs to get up and start ambulating. Continue hip precautions Continue DVT prophylaxis Patient needs sparse plate with OT/PT Discharge planning for Friday Qualifiers: Encounter type: subsequent encounter Fracture healing: with routine healing Qualified Code(s): S72.002D - Fracture of unspecified part of neck of left femur, subsequent encounter for closed fracture with routine healing Subjective Principal diagnosis: POD# 2 s/p left hip hemiarthroplasty Interval history: The patient complains of back pain. He still has not ambulated with the therapist. He did get out of the bed this morning and walked to the chair. Nursing staff reported a bowel movement this morning. Patient CT scan showed nonobstructive gastroparesis. No change in AAA seen on CT scan Objective Vital signs: Vital Signs Temp Pulse Resp BP Pulse Ox 08/17/16 10:39 98.4 F 90 18 94/58 95 08/17/16 09:10 100 118/71 08/17/16 06:27 98.0 F 89 16 102/54 93 08/17/16 05:01 105/62 08/17/16 00:05 98.8 F 84 18 95/60 96 08/16/16 20:59 98.8 F 57 17 102/67 94 Intake and Output 08/16/16 08/17/16 08/17/16 23:59 07:59 15:59 Intake Total 240 / 240 Output Total 600 / 600 400 / 400 Balance -360 / -360 -400 / -400 Intake: Oral 240 / 240 Output: Urine 600 / 600 400 / 400 Other: Weight 63.1 kg Patient Weight 08/17/16 23:59 Weight 63.1 kg Incision: clean and dry (Abduction pillow in place. Patient's of bilateral calves are soft and nontender. He is neurovascularly intact. Patient shows equal leg lengths.) - Labs CBC & BMP: 08/17/16 05:10 08/17/16 05:10 Labs: Abnormal lab results Hgb 11.7 g/dL (12.9-16.9) L D 08/17/16 05:10 Creatinine 0.64 mg/dL (0.72-1.25) L 08/17/16 05:10 Calcium 7.6 mg/dL (8.6-10.8) L 08/17/16 05:10 - VTE Documentation of Mechanical Device: Intermittent pneumatic compression device Consult Discharge Plan - Plan Referrals: Carisa Ferguson MD [Primary Care Provider] -
[2016-08-17] MEDS: *HR* OxyCODONE/APAP 5/325 TABLET PO PRN (15:27)
--- NOTE | 2016-08-17 16:49 | Internal Med Progress Note ---
Date of Encounter: 08/17/16 Time of Encounter: 11:00 - Assessment and plan (1) Closed left hip fracture Current Visit: No Status: Chronic Assessment and plan: 08/15 patient underwent left hip removal of antibiotic spacer, implantation of alan-arthroplasty prosthesis and resection of heterotopic ossification. Orthopedic service is primary team. Qualifiers: Encounter type: subsequent encounter Fracture healing: with routine healing Qualified Code(s): S72.002D - Fracture of unspecified part of neck of left femur, subsequent encounter for closed fracture with routine healing (2) Intractable nausea and vomiting Current Visit: Yes Status: Acute Assessment and plan: Patient developed postoperative intractable nausea and vomiting with associated heartburn. CT of the abdomen and pelvis revealed nonobstructive gastric distention, solid stool throughout the colon, stable 4.5 cm aneurysm of the abdominal aorta. Today, patient has not vomited. She declined NG tube yesterday but he received and in edema followed by a large bowel movement and improvement of his symptoms. Repeat KUB today shows no significant gastric distention with findings suggesting mild post-surgical adynamic ileus. Advance diet to clear liquids. Patient encouraged to ambulate. Dulcolax RC as needed. Qualifiers: Vomiting type: cyclical vomiting Qualified Code(s): G43.A1 - Cyclical vomiting, intractable (3) Ileus Current Visit: Yes Status: Acute Assessment and plan: Postoperative ileus. Patient encouraged to ambulate. Potassium at adequate levels. Advance diet to liquid. Antiemetics as needed. (4) Acute distention of stomach Current Visit: Yes Status: Resolved Assessment and plan: plan as above (5) Constipation Current Visit: Yes Status: Resolved Assessment and plan: plan as above. Qualifiers: Constipation type: other constipation type Qualified Code(s): K59.09 - Other constipation (6) Hypokalemia Current Visit: Yes Status: Resolved Assessment and plan: Corrected. (7) Diastolic CHF Current Visit: No Status: Chronic Assessment and plan: compensated. Qualifiers: Congestive heart failure chronicity: chronic Qualified Code(s): I50.32 - Chronic diastolic (congestive) heart failure (8) Abdominal aortic aneurysm (AAA) 3.0 cm to 5.5 cm in diameter in male Current Visit: No Status: Chronic Assessment and plan: Follow-up in the outpatient clinic. - Subjective Interval history: Patient reports a large bowel movement after an enema overnight. No nausea. No abdominal pain. He is eager to drink some fluids. - Constitutional Vitals: Temp Pulse Resp BP Pulse Ox 98.0 F 73 18 99/61 98 08/17/16 15:58 08/17/16 15:58 08/17/16 15:58 08/17/16 15:58 08/17/16 15:58 General appearance: Present: cooperative, mild distress, A&O X 3, answers questions appropriately - Neck Neck exam general surgery: Present: supple, trachea midline. Absent: lymphadenopathy - Respiratory Respiratory exam: Present: CTAB - Cardiovascular Cardiovascular exam: Present: RRR - GI/Abdominal GI/Abdominal exam: Present: normal bowel sounds, soft. Absent: distended, tenderness - Extremities Exam Extremities exam: Absent: pedal edema - Neurological Exam Neurological exam: Present: alert, oriented X3, no focal deficits. Absent: facial droop, speech deficit - Skin Skin exam: Absent: rash Internal Medicine: Result - Labs CBC & Chem 7: 08/17/16 05:10 08/17/16 05:10 Labs: Short CBC 08/17/16 Range/Units 05:10 Hgb 11.7 L D (12.9-16.9) g/dL Hct 38.2 (37.5-50.1) % BMP 08/17/16 05:10 Sodium 137 Potassium 3.7 Chloride 107 Carbon Dioxide 24 BUN 9 Creatinine 0.64 L Glucose 81 Calcium 7.6 L - Impressions Impressions KUB X-Ray 08/17/16 10:50 IMPRESSION: 1. No significant gastric distention. 2. Findings suggesting mild postsurgical adynamic ileus. D/ / 08/17/2016 15:59:23 Andre Oliveira MD / nick Interpreting Provider: Andre Oliveira MD - VTE Documentation of Mechanical Device: Intermittent pneumatic compression device Consult Discharge Plan - Plan Referrals: Carisa Ferguson MD [Primary Care Provider] -
[2016-08-17] MEDS: *HR* Morphine Sulfate SR (12 HR) 60 MG TABLET.ER PO SCH (17:12)
[2016-08-18] MEDS: *HR* OxyCODONE Immed Rel 15 MG TABLET PO PRN (01:05)
[2016-08-18] MEDS: Ondansetron 4 MG/2 ML VIAL IVP SCH ×5 (01:05→23:53)
[2016-08-18 04:46] LABS: Basophils # 0.1 K/mcL (0.0-0.2); Basophils % 0.6 %; Eosinophils # 0.3 K/mcL (0.0-0.6); Eosinophils % 4.1 %; Hematocrit 35.6 % (37.5-50.1); Immature Granulocytes % 0.6 % (0-4); Lymphocytes # 2.6 K/mcL (0.6-4.6); Mean Corpuscular HGB Conc 30.9 g/dL (31.6-35.5); Mean Corpuscular Hemoglobin 30.1 pg (28.0-33.3); Mean Corpuscular Volume 97.5 fL (83.0-100.0); Mean Platelet Volume 10.2 fL (9.4-12.4); Monocytes # 0.6 K/mcL (0.0-1.3); Monocytes % 8.1 %; Neutrophils # 4.2 K/mcL (1.6-8.9); Platelet Count 172 K/mcL (140-400); Red Blood Count 3.65 M/mcL (4.19-5.50); Red Cell Distribution Width 14.5 % (11.5-14.5); Segmented Neutrophils % 53.6 %
[2016-08-18 05:01] LABS: BUN/Creatinine Ratio 11 (6-26); Blood Urea Nitrogen 7 mg/dL (8-26); Calcium 7.7 mg/dL (8.6-10.8); Carbon Dioxide 22 mEq/L (19-29); Chloride 107 mEq/L (98-109); Glucose 74 mg/dL (70-99); Magnesium 1.5 mg/dL (1.6-2.6); Osmolality,Calculated 279 (280-300); Potassium 3.4 mEq/L (3.5-4.5); Sodium 136 mEq/L (136-145); eGFR For African Americans > 60 (> 60); eGFR For Non-African Americans > 60 (> 60)
[2016-08-18] MEDS: *HR* Morphine Sulfate SR (12 HR) 60 MG TABLET.ER PO SCH ×2 (06:24→17:48)
[2016-08-18] MEDS: Pantoprazole 40 MG VIAL IVP SCH ×2 (06:24→17:48)
[2016-08-18] MEDS: *HR* Enoxaparin 30 MG/0.3 ML SYRINGE SQ SCH ×2 (06:24→17:49)
[2016-08-18] MEDS ORDERED: Magnesium Sulfate 1 GM in D5% in Water 100 ML IVPB ONE ×2 (08:06→09:51)
[2016-08-18] MEDS: Ascorbic Acid 500 MG TABLET PO SCH ×2 (08:23→17:48)
[2016-08-18] MEDS: Metoprolol XL (24 HR) Succ 50 MG TAB.ER.24H PO SCH (08:23)
[2016-08-18] MEDS: Topiramate 25 MG TABLET PO SCH ×2 (08:23→21:37)
[2016-08-18] MEDS: *HR* OxyCODONE Immed Rel 5 MG TABLET PO PRN (09:48)
[2016-08-18] MEDS ORDERED: Ketorolac 15 MG/ML VIAL IVP ONE (14:04)
--- NOTE | 2016-08-18 14:52 | Orthopedics Progress Note ---
Date of Encounter: 08/18/16 Time of Encounter: 14:50 - Assessment and Plan (1) Decubital ulcer Current Visit: Yes Status: Acute Patient has dressing in place. Decubiti precautions Qualifiers: Pressure ulcer location: sacral region Pressure ulcer stage: stage 1 Qualified Code(s): L89.151 - Pressure ulcer of sacral region, stage 1 (2) Closed left hip fracture Current Visit: No Status: Chronic Postoperative day #3, stable He has being more active Continue hip precautions Continue DVT prophylaxis Discharge planning for Friday Qualifiers: Encounter type: subsequent encounter Fracture healing: with routine healing Qualified Code(s): S72.002D - Fracture of unspecified part of neck of left femur, subsequent encounter for closed fracture with routine healing Subjective Principal diagnosis: POD# 2 s/p left hip hemiarthroplasty Interval history: The patient has been out of bed several hours and also ambulated. His diet has been advanced to chopped solid food. Objective Vital signs: Vital Signs Temp Pulse Resp BP Pulse Ox 08/18/16 13:50 95 85/51 97 08/18/16 11:15 94/60 08/18/16 11:04 98.0 F 91 16 78/47 95 08/18/16 07:49 98.4 F 72 16 111/70 95 08/18/16 01:10 98.2 F 94 15 108/63 96 08/17/16 19:12 99.5 F 85 16 105/68 98 08/17/16 15:58 98.0 F 73 18 99/61 98 Intake and Output 08/17/16 08/18/16 08/18/16 23:59 07:59 15:59 Intake Total 222 / 222 Output Total 475 / 475 Balance -475 / -475 222 / 222 Intake: IV Fluids 102 / 102 Magnesium Sulfate 1 GM In 102 / 102 Dextrose 5% 100 ML @ 100 mls/hr IVPB ONCE ONE Rx# :[id number] Oral 120 / 120 Output: Urine 475 / 475 Other: Meal Lunch Percent of Meal Consumed 10% Incision: clean and dry (EPCDs in place. Abduction wedge in place. No swelling and calves, tenderness, neurovascular intact distally) - Labs CBC & BMP: 08/18/16 04:35 08/18/16 04:35 Labs: Abnormal lab results RBC 3.65 M/mcL (4.19-5.50) L 08/18/16 04:35 Hgb 11.0 g/dL (12.9-16.9) L 08/18/16 04:35 Hct 35.6 % (37.5-50.1) L 08/18/16 04:35 MCHC 30.9 g/dL (31.6-35.5) L 08/18/16 04:35 Potassium 3.4 mEq/L (3.5-4.5) L 08/18/16 04:35 BUN 7 mg/dL (8-26) L 08/18/16 04:35 Creatinine 0.64 mg/dL (0.72-1.25) L 08/18/16 04:35 Calculated Osmolality 279 (280-300) L 08/18/16 04:35 Calcium 7.7 mg/dL (8.6-10.8) L 08/18/16 04:35 Magnesium 1.5 mg/dL (1.6-2.6) L 08/18/16 04:35 - VTE Documentation of Mechanical Device: Intermittent pneumatic compression device Consult Discharge Plan - Plan Referrals: Carisa Ferguson MD [Primary Care Provider] -
--- NOTE | 2016-08-18 14:58 | Discharge Summary ---
Date of Encounter: 08/18/16 Time of Encounter: 14:53 - Discharge Diagnosis (1) Decubital ulcer Priority: Secondary Status: Acute Qualifiers: Pressure ulcer location: sacral region Pressure ulcer stage: stage 1 Qualified Code(s): L89.151 - Pressure ulcer of sacral region, stage 1 (2) Closed left hip fracture Priority: Primary Status: Chronic Comments: Status post left hip hemiarthroplasty, staged after antibiotic spacer removal Patient is weightbearing as tolerated Hip precautions Use abduction wedge pillow while in bed Qualifiers: Encounter type: subsequent encounter Fracture healing: with routine healing Qualified Code(s): S72.002D - Fracture of unspecified part of neck of left femur, subsequent encounter for closed fracture with routine healing - Discharge Medications Prescriptions: OxyCODONE Immed Rel [Roxicodone 5 MG] 10 mg PO Q4HR PRN #40 tablet PRN Reason: Pain Enoxaparin [Lovenox] 30 mg SQ Q12HR #30 syr Home Medications: MOM Conc [MILK OF MAGNESIA conc] 30 ml PO QID PRN 05/02/16 [History] Polyethylene Glycol 3350 [MiraLAX] 17 gm PO DAILY PRN 05/02/16 [History] Tizanidine HCl [Zanaflex] 4 mg PO TID PRN 05/02/16 [History] Topiramate [Topamax] 50 mg PO BID 05/02/16 [History] Amitriptyline [Elavil] 50 mg PO HS 05/03/16 [History] Testosterone Cypionate [Testone Cik] 1 ml IM TH 05/03/16 [History] Morphine Sulfate SR (12 HR) [MS Contin] 60 mg PO Q12HR #20 05/08/16 [Rx] Furosemide [Lasix] 20 mg PO DAILY 08/15/16 [History] Metoprolol XL (24 HR) Succ [Toprol XL] 50 mg PO DAILY 08/15/16 [History] Morphine Immed Rel [Morphine Sulfate] 15 mg PO TID PRN 08/15/16 [History] Multivitamin [Multi-Day Vitamins] 1 each PO DAILY 08/15/16 [History] Potassium Chloride [K-Tab ER] 20 meq PO DAILY 08/15/16 [History] Enoxaparin [Lovenox] 30 mg SQ Q12HR #30 syr 08/18/16 [Rx] OxyCODONE Immed Rel [Roxicodone 5 MG] 10 mg PO Q4HR PRN #40 tablet 08/18/16 [Rx] Allergies/Adverse Reactions: Allergies No Known Allergies Allergy (Verified 08/15/16 11:06) Labs on day of discharge: Labs from last 24 hours 08/18/16 08/18/16 04:35 04:35 WBC 7.8 RBC 3.65 L Hgb 11.0 L Hct 35.6 L MCV 97.5 MCH 30.1 MCHC 30.9 L RDW 14.5 Plt Count 172 MPV 10.2 Immature Gran % 0.6 Seg Neutrophils % 53.6 Lymphocytes % 33.0 Monocytes % 8.1 Eosinophils % 4.1 Basophils % 0.6 Neutrophils # 4.2 Lymphocytes # 2.6 Monocytes # 0.6 Eosinophils # 0.3 Basophils # 0.1 Sodium 136 Potassium 3.4 L Chloride 107 Carbon Dioxide 22 BUN 7 L Creatinine 0.64 L Est GFR ( Amer) > 60 Est GFR (Non-Af Amer) > 60 BUN/Creatinine Ratio 11 Glucose 74 Calculated Osmolality 279 L Calcium 7.7 L Magnesium 1.5 L Preliminary micro results at discharge 08/15/16 12:44 Anaerobic Culture - Preliminary Left Hip At this time, no anaerobic growth is present. The culture will be finalized after 5 days of incubation. - Impressions ITS Impressions Hip X-Ray 08/15/16 00:00 IMPRESSION: Baseline study status post total left hip arthroplasty without evidence of acute postoperative complication. D/ : / 08/15/2016 14:52:09 Seun Trejo MD / Sue Coley Interpreting Provider: Seun Trejo MD Abdomen/Pelvis CT 08/16/16 14:56 IMPRESSION: 1. Nonobstructive gastric distention could be due to gastro paresis 2. Status post cholecystectomy, with interval resolution of fluid collection that was present in the gallbladder fossa 3. Solid stool throughout the colon should be correlated with any history of constipation 4. Stable 4.5 cm aneurysm of the abdominal aorta. Please refer to below RECOMMENDATIONS: Managing Abdominal Aortic Aneurysms 2.6-2.9 cm: 5 year follow up. 3.0-3.4 cm: 3 year follow up 3.5-3.9 cm: 1 year follow up. 4.0-4.4 cm: 1 year follow up. Recommend vascular consultation. 4.5-5.4 cm: 6 month follow up. Recommend vascular consultation. Greater than or equal to 5.5 cm: Referral to vascular surgeon. Reference: Yosvany et al. The care of patients with an abdominal aortic aneurysm: The Society of Vascular Surgery practice guidelines. Journal of Vascular Surgery. Vol 50, Number 85. Dk et al. Managing Incidental Findings on Abdominal and Pelvic CT and MRI, Part 2: White Paper of the ACR Incidental Findings Committee II on Vascular Findings. J Am Fidelia Radiol 2013;10:789-794 D/ / Aj Avendaño MD / Aj Avendaño MD Interpreting Provider: Aj Avendaño MD X-Ray 08/17/16 10:50 IMPRESSION: 1. No significant gastric distention. 2. Findings suggesting mild postsurgical adynamic ileus. D/ / 08/17/2016 15:59:23 Andre Oliveira MD / nick Interpreting Provider: Andre Oliveira MD Date of admission: 08/15/16 15:27 Primary care physician: Carisa Ferguson MD Consults: 08/15/16 15:41 Consult to Nurse Navigator [CONS] Routine Comment: ortho navigator Consult to Occupational Therapy [CONS] Routine Comment: Evaluate, develop and implement POC Reason for Consult: total hip replacement Consult to Physical Therapy [CONS] Routine Comment: Evaluate, develop and implement POC Reason for Consult: total hip replacement Consult to Sew Out Operator [CONS] Routine Reason for SW Consult: post op joint replacement RT Post Op Consult [CONS] Routine 08/16/16 10:02 Consult to Hospitalist [CONS] Stat Consulting Provider: Hospitalist [place] Reason for Consult: persistent, dark emesis Time Notified: 10:00 Call Completed: Yes Discharging clinician: Jese Riggs Anticipated date of discharge: 08/19/16 - Patient Status Disposition: Transfer Inpatient Rehab Fac Condition: Fair Functional capacity at discharge: uses cane/walker Overall status at discharge: patient is progressing back to baseline - Discharge Instructions Follow Up With: Carisa Ferguson MD [Primary Care Provider] - Natalie Davison PAC [Physician Entrepreneur] - Additional Instructions: Weightbearing as tolerated Continue hip precautions Use abduction wedge pillow while in bed Follow-up with Natalie Davison PA-C in 2 weeks - Diet and Activity Activity: ambulate only with your walker Diet: advance to your usual diet - Hospital Course Hospital course: Mr. Epps is a 56 year old male - Time Spent with Patient Total time spent providing and/or coordinating discharge services: - VTE Documentation of Mechanical Device: Intermittent pneumatic compression device
--- NOTE | 2016-08-18 17:33 | Internal Med Progress Note ---
Date of Encounter: 08/18/16 Time of Encounter: 12:30 - Assessment and plan (1) Closed left hip fracture Current Visit: No Status: Chronic Assessment and plan: 08/15 patient underwent left hip removal of antibiotic spacer, implantation of alan-arthroplasty prosthesis and resection of heterotopic ossification. Orthopedic service is primary team. Qualifiers: Encounter type: subsequent encounter Fracture healing: with routine healing Qualified Code(s): S72.002D - Fracture of unspecified part of neck of left femur, subsequent encounter for closed fracture with routine healing (2) Intractable nausea and vomiting Current Visit: Yes Status: Acute Assessment and plan: Patient developed postoperative intractable nausea and vomiting with associated heartburn. CT of the abdomen and pelvis revealed nonobstructive gastric distention, solid stool throughout the colon, stable 4.5 cm aneurysm of the abdominal aorta. 08/17: patient has not vomited. he received an enema followed by a large bowel movement with improvement of his symptoms. Repeat KUB today shows no significant gastric distention with findings suggesting mild post-surgical adynamic ileus. clinically improving. Advance diet to soft. Patient encouraged to ambulate. Dulcolax RC as needed. Qualifiers: Vomiting type: cyclical vomiting Qualified Code(s): G43.A1 - Cyclical vomiting, intractable (3) Ileus Current Visit: Yes Status: Acute Assessment and plan: improved. Postoperative ileus. Patient encouraged to ambulate. Potassium at adequate levels. Advance diet to soft. Antiemetics as needed. (4) Acute distention of stomach Current Visit: Yes Status: Resolved Assessment and plan: plan as above (5) Constipation Current Visit: Yes Status: Resolved Assessment and plan: plan as above. Qualifiers: Constipation type: other constipation type Qualified Code(s): K59.09 - Other constipation (6) Hypokalemia Current Visit: Yes Status: Resolved Assessment and plan: Corrected. (7) Diastolic CHF Current Visit: No Status: Chronic Assessment and plan: compensated. Qualifiers: Congestive heart failure chronicity: chronic Qualified Code(s): I50.32 - Chronic diastolic (congestive) heart failure (8) Abdominal aortic aneurysm (AAA) 3.0 cm to 5.5 cm in diameter in male Current Visit: No Status: Chronic Assessment and plan: Follow-up in the outpatient clinic. - Subjective Interval history: Patient denies any nausea, vomiting or abdominal pain. He ate all his clear liquid diet yesterday. - Constitutional Vitals: Temp Pulse Resp BP Pulse Ox 97.6 F 76 16 109/70 99 08/18/16 16:13 08/18/16 16:13 08/18/16 16:13 08/18/16 16:13 08/18/16 16:13 General appearance: Present: cooperative, mild distress, A&O X 3, answers questions appropriately - Neck Neck exam general surgery: Present: supple, trachea midline. Absent: lymphadenopathy - Respiratory Respiratory exam: Present: CTAB - Cardiovascular Cardiovascular exam: Present: RRR - GI/Abdominal GI/Abdominal exam: Present: normal bowel sounds, soft. Absent: distended, tenderness - Extremities Exam Extremities exam: Absent: pedal edema - Back Exam Back exam: Absent: CVA tenderness (L), CVA tenderness (R) - Neurological Exam Neurological exam: Present: alert, oriented X3, no focal deficits, strengths equal and symetr throughout. Absent: facial droop, speech deficit - Skin Skin exam: Absent: rash Internal Medicine: Result - Labs CBC & Chem 7: 08/18/16 04:35 08/18/16 04:35 Labs: Short CBC 08/18/16 Range/Units 04:35 WBC 7.8 (4.3-11.1) K/mcL Hgb 11.0 L (12.9-16.9) g/dL Hct 35.6 L (37.5-50.1) % Plt Count 172 (140-400) K/mcL Neutrophils # 4.2 (1.6-8.9) K/mcL BMP 08/18/16 04:35 Sodium 136 Potassium 3.4 L Chloride 107 Carbon Dioxide 22 BUN 7 L Creatinine 0.64 L Glucose 74 Calcium 7.7 L - VTE Documentation of Mechanical Device: Intermittent pneumatic compression device Consult Discharge Plan - Plan Additional Instructions: Weightbearing as tolerated Continue hip precautions Use abduction wedge pillow while in bed Follow-up with Natalie Davison PA-C in 2 weeks Referrals: Natalie Davison, PAC [Physician Principal Law Clerk] - Carisa Ferguson MD [Primary Care Provider] - Prescriptions: OxyCODONE Immed Rel [Roxicodone 5 MG] 10 mg PO Q4HR PRN #40 tablet PRN Reason: Pain Enoxaparin [Lovenox] 30 mg SQ Q12HR #30 syr
[2016-08-18] MEDS: Multivit/Ca/Min/Fe/FA 1 TAB TABLET PO SCH (17:52)
[2016-08-18] MEDS: *HR* OxyCODONE/APAP 5/325 TABLET PO PRN (21:37)
[2016-08-19] MEDS: Pantoprazole 40 MG VIAL IVP SCH (05:35)
[2016-08-19] MEDS: *HR* Enoxaparin 30 MG/0.3 ML SYRINGE SQ SCH (05:35)
[2016-08-19] MEDS: Ondansetron 4 MG/2 ML VIAL IVP SCH ×2 (05:35→13:20)
[2016-08-19] MEDS: *HR* Morphine Sulfate SR (12 HR) 60 MG TABLET.ER PO SCH (05:35)
[2016-08-19] MEDS: Multivit/Ca/Min/Fe/FA 1 TAB TABLET PO SCH (09:34)
[2016-08-19] MEDS: Ascorbic Acid 500 MG TABLET PO SCH (09:34)
[2016-08-19] MEDS: Topiramate 25 MG TABLET PO SCH ×2 (09:34→10:08)
[2016-08-19] MEDS: Metoprolol XL (24 HR) Succ 50 MG TAB.ER.24H PO SCH (09:37)
[2016-08-19] MEDS: *HR* OxyCODONE Immed Rel 15 MG TABLET PO PRN ×2 (10:08→14:44)
[2016-08-19 10:32] LABS: BUN/Creatinine Ratio 11 (6-26); Blood Urea Nitrogen 7 mg/dL (8-26); Calcium 7.8 mg/dL (8.6-10.8); Carbon Dioxide 23 mEq/L (19-29); Chloride 109 mEq/L (98-109); Glucose 79 mg/dL (70-99); Magnesium 1.7 mg/dL (1.6-2.6); Osmolality,Calculated 281 (280-300); Potassium 3.7 mEq/L (3.5-4.5); Sodium 137 mEq/L (136-145); eGFR For African Americans > 60 (> 60); eGFR For Non-African Americans > 60 (> 60)
--- NOTE | 2016-08-19 11:35 | Internal Med Progress Note ---
Date of Encounter: 08/19/16 Time of Encounter: 09:00 - Assessment and plan (1) Closed left hip fracture Status: Chronic Assessment and plan: 08/15 patient underwent left hip removal of antibiotic spacer, implantation of alan-arthroplasty prosthesis and resection of heterotopic ossification. Orthopedic service is primary team. plan for rehab placement today. Qualifiers: Encounter type: subsequent encounter Fracture healing: with routine healing Qualified Code(s): S72.002D - Fracture of unspecified part of neck of left femur, subsequent encounter for closed fracture with routine healing (2) Intractable nausea and vomiting Status: Resolved Assessment and plan: resolved. Patient developed postoperative intractable nausea and vomiting with associated heartburn. CT of the abdomen and pelvis revealed nonobstructive gastric distention, solid stool throughout the colon, stable 4.5 cm aneurysm of the abdominal aorta. 08/17: patient has not vomited. he received an enema followed by a large bowel movement with improvement of his symptoms. Repeat KUB today shows no significant gastric distention with findings suggesting mild post-surgical adynamic ileus. Patient is eating well. Dulcolax RC as needed. Qualifiers: Vomiting type: cyclical vomiting Qualified Code(s): G43.A1 - Cyclical vomiting, intractable (3) Ileus Status: Resolved Assessment and plan: resolved. Postoperative ileus. Patient encouraged to ambulate. Potassium at adequate levels. Advance diet to soft. Antiemetics as needed. (4) Acute distention of stomach Status: Resolved Assessment and plan: plan as above (5) Constipation Status: Resolved Assessment and plan: plan as above. Qualifiers: Constipation type: other constipation type Qualified Code(s): K59.09 - Other constipation (6) Hypokalemia Status: Resolved Assessment and plan: Corrected. (7) Diastolic CHF Status: Chronic Assessment and plan: compensated. Qualifiers: Congestive heart failure chronicity: chronic Qualified Code(s): I50.32 - Chronic diastolic (congestive) heart failure (8) Abdominal aortic aneurysm (AAA) 3.0 cm to 5.5 cm in diameter in male Status: Chronic Assessment and plan: Follow-up in the outpatient clinic. - Subjective Interval history: Patient denies any nausea, vomiting or abdominal pain. He ate all his diet. - Constitutional Vitals: Temp Pulse Resp BP Pulse Ox 98.4 F 71 16 112/66 98 08/19/16 09:48 08/19/16 09:48 08/19/16 09:48 08/19/16 09:48 08/19/16 09:48 General appearance: Present: cooperative, A&O X 3, pleasant, no acute distress, answers questions appropriately - Neck Neck exam general surgery: Present: supple, trachea midline. Absent: lymphadenopathy - Respiratory Respiratory exam: Present: CTAB - Cardiovascular Cardiovascular exam: Present: RRR - GI/Abdominal GI/Abdominal exam: Present: normal bowel sounds, soft. Absent: distended, tenderness - Extremities Exam Extremities exam: Absent: pedal edema - Back Exam Back exam: Absent: CVA tenderness (L), CVA tenderness (R) - Neurological Exam Neurological exam: Present: alert, oriented X3, no focal deficits, strengths equal and symetr throughout. Absent: facial droop, speech deficit - Skin Skin exam: Absent: rash Internal Medicine: Result - Labs CBC & Chem 7: 08/18/16 04:35 08/19/16 10:00 Labs: BMP 08/19/16 10:00 Sodium 137 Potassium 3.7 Chloride 109 Carbon Dioxide 23 BUN 7 L Creatinine 0.65 L Glucose 79 Calcium 7.8 L - VTE Documentation of Mechanical Device: Intermittent pneumatic compression device Consult Discharge Plan - Plan Additional Instructions: Weightbearing as tolerated Continue hip precautions Use abduction wedge pillow while in bed Follow-up with Natalie Davison PA-C in 2 weeks Referrals: Natalie Davison, PAC [Physician Operations Representative] - Carisa Ferguson MD [Primary Care Provider] - Prescriptions: OxyCODONE Immed Rel [Roxicodone 5 MG] 10 mg PO Q4HR PRN #40 tablet PRN Reason: Pain Enoxaparin [Lovenox] 30 mg SQ Q12HR #30 syr
[2016-08-19 12:31] VITALS: BP 114/68
--- NOTE | 2016-08-19 16:15 | Physician Discharge Referral ---
ExtendedCare Referral Info Transfer To: on license of [facility] Provider in Charge: nicloette Provider in Charge after Transfer: PCP Institutional Level of Care: Skilled - Diagnosis (1) Closed left hip fracture Status: Chronic (2) Intractable nausea and vomiting Status: Resolved (3) Ileus Status: Resolved (4) Acute distention of stomach Status: Resolved (5) Constipation Status: Resolved (6) Hypokalemia Status: Resolved (7) Diastolic CHF Status: Chronic (8) Abdominal aortic aneurysm (AAA) 3.0 cm to 5.5 cm in diameter in male Status: Chronic - Transfer Medications Prescriptions: OxyCODONE Immed Rel [Roxicodone 5 MG] 10 mg PO Q4HR PRN #40 tablet PRN Reason: Pain Enoxaparin [Lovenox] 30 mg SQ Q12HR #30 syr Home Medications: MOM Conc [MILK OF MAGNESIA conc] 30 ml PO QID PRN 05/02/16 [History] Polyethylene Glycol 3350 [MiraLAX] 17 gm PO DAILY PRN 05/02/16 [History] Tizanidine HCl [Zanaflex] 4 mg PO TID PRN 05/02/16 [History] Topiramate [Topamax] 50 mg PO BID 05/02/16 [History] Amitriptyline [Elavil] 50 mg PO HS 05/03/16 [History] Testosterone Cypionate [Testone Cik] 1 ml IM TH 05/03/16 [History] Morphine Sulfate SR (12 HR) [MS Contin] 60 mg PO Q12HR #20 05/08/16 [Rx] Furosemide [Lasix] 20 mg PO DAILY 08/15/16 [History] Metoprolol XL (24 HR) Succ [Toprol XL] 50 mg PO DAILY 08/15/16 [History] Morphine Immed Rel [Morphine Sulfate] 15 mg PO TID PRN 08/15/16 [History] Multivitamin [Multi-Day Vitamins] 1 each PO DAILY 08/15/16 [History] Potassium Chloride [K-Tab ER] 20 meq PO DAILY 08/15/16 [History] Enoxaparin [Lovenox] 30 mg SQ Q12HR #30 syr 08/18/16 [Rx] OxyCODONE Immed Rel [Roxicodone 5 MG] 10 mg PO Q4HR PRN #40 tablet 08/18/16 [Rx] Allergies/Adverse Reactions: Allergies No Known Allergies Allergy (Verified 08/15/16 11:06) - Respiratory Orders Smoking Cessation: Smoking cessation has been advised. For more information, call the [place] Tobacco Quit Line at 3-714-SLUJ-NOW. - Advance Directives Code Status: Full Code - Mobility Orders Ambulate - Rehabiliation Orders Rehab Potential: Good Rehab Orders: Evaluation for Physical Therapy, Evaluation for Occupational Therapy - Treatments List/Other: patient to follow up with primary care doctor for aortic abdominal aneurysm - Diet Orders Cardiac CERTIFICATION: I certify that the transfer of the above named patient to an Extended Care Facility is necessary for the continuing treatment of the diagnosis listed. The above information is true and accurate reflection of patient's current condition. Confidential - Redisclosure prohibited without a patient's written consent.
== END 2016-08-19 16:07 | DRG 467 ==
LOC: SAMDAY 10:25 → 3NENU 15:27
PROVIDERS: ADMIT Orthopaedic Surgery Hand Surgery; ATTEND Orthopaedic Surgery Hand Surgery

== ENCOUNTER 2018-12-17 06:36 | Inpatient (IN) ==
[~2018-12-17 06:36] MED LIST: Vancomycin 1,000 MG, Sodium Chloride IRRigation 1,000 ML IR ONE
[2018-12-17] MEDS ORDERED: *HR* Rocuronium Bromide 50 MG/5 ML VIAL ONE (06:44)
[2018-12-17] MEDS ORDERED: Ondansetron 4 MG/2 ML VIAL ONE (06:44)
[2018-12-17] MEDS ORDERED: Lidocaine -MPF 2% 2 ML VIAL ONE ×2 (06:44→14:08)
[2018-12-17] MEDS ORDERED: *HR* Phenylephrine 10 MG/ML VIAL ONE (06:44)
[2018-12-17] MEDS ORDERED: *HR* Heparin 5,000 UNIT/ML VIAL ONE (06:44)
[2018-12-17] MEDS ORDERED: *HR* Succinylcholine 200 MG/10 ML VIAL IVP ONE (06:44)
[2018-12-17] MEDS ORDERED: *HR* Propofol 200 MG/20 ML VIAL IVP ONE (06:50)
[2018-12-17] MEDS ORDERED: *HR* FentaNYL (PF) 100 MCG/2 ML VIAL ONE (06:51)
[2018-12-17] MEDS ORDERED: *HR* Midazolam HCl 2 MG/2 ML VIAL ONE (06:53)
--- NOTE | 2018-12-17 06:55 | History & Physical Report ---
Date of Encounter: 12/17/18 Time of Encounter: 06:50 24 Hour HP Update - Instructions Instructions: If the History and Physical is less than 30 days old and was completed prior to A.M. admission and or procedure and has NOT been updated on calendar day of procedure please complete this update prior to performing procedure. - Update Patient reports changes in Medical Condition: No Changes in examination, assessment, or condition: No Changes in Medication: No Preop tests/diagnostics Reviewed: Yes Surgery Remains Indicated: Yes Consent for Planned Operative Procedure(s) Verified: Yes - Pre-Operative Checklist Preoperative Checklist Indicated: Yes Prophylactic Antibiotic Ordered: Yes (vancomycin due to risk of MRSA) Home Medications Include Beta Vincent: Yes Beta Vincent Taken Today (Day of Surgery): Yes Beta Vincent Taken Yesterday (Day Prior to Surgery): Yes Is VTE Prophylaxis Indicated?: Yes
[2018-12-17] MEDS ORDERED: Albuterol 2.5 MG/3 ML NEBULIZER IH ONE (07:06)
[2018-12-17] MEDS ORDERED: CeFAZolin Syr 2,000MG/20 ML 2,000 MG/20 ML SYRINGE IVPB ONE (07:06)
[2018-12-17] MEDS ORDERED: Ringers Solution, Lactated 1,000 ML IVC SCH (07:15)
--- NOTE | 2018-12-17 07:18 | Anesthesia Evaluation PreOp ---
Date of Encounter: 12/17/18 Time of Encounter: 07:16 - Past History Planned Operation: endo infrarenal AAA Cardiac History: HTN, Hyperlipidemia, Other (tachycardia, PVD) Pulmonary History: VERO Dx (no CPAP) MANAGER SHELL History: Other (chornic back pain chornic opiates, took MS contin 0400) Other Medical History: GERD Anesthesia History: No Prior Anesthetic Complications, Past Anesthesia (open rosa elena, ex lap, rider rods for scoliosis, EGD) Alcohol Use: none Drug use: none Medications and Allergies Tizanidine HCl [Zanaflex] 4 mg PO TID PRN 05/02/16 [History] Amitriptyline [Elavil] 50 mg PO HS 05/03/16 [History] Testosterone Cypionate [Testone Cik] 1 ml IM TH 05/03/16 [History] Morphine Sulfate ER (12 HR) [MS Contin] 60 mg PO Q12HR #20 05/08/16 [Rx] Metoprolol XL (24 HR) Succ [Toprol XL] 50 mg PO BID 08/15/16 [History] Morphine Sulfate Immed Rel [Morphine Sulfate] 15 mg PO TID PRN 08/15/16 [History] Multivitamin [Multi-Day Vitamins] 1 each PO DAILY 08/15/16 [History] Potassium Chloride [K-Tab ER] 20 meq PO DAILY 08/15/16 [History] Omeprazole [PriLOSEC] 20 mg PO DAILY 05/12/18 [History] predniSONE [Prednisone] 2.5 mg PO DAILY 06/04/18 [History] Aspirin 81 mg PO DAILY 12/17/18 [History] Topiramate [Topamax] 50 mg PO BID 12/17/18 [History] Allergy/AdvReac Type Severity Reaction Status Date / Time No Known Allergies Allergy Verified 08/15/16 11:06 - Meds/Allergy Pre-op Review Medications Reviewed: Yes Allergies Reviewed: Yes Beta Blockers on Current Med List: Yes (metoprolol) If Beta Blockers taken, Date/Time (Last Dose taken): midnight Anesthesia Results - Labs Laboratory Tests 12/11/18 12/11/18 12/11/18 16:02 16:02 16:02 WBC 8.4 Hgb 16.0 Hct 49.7 Plt Count 188 PT 11.2 INR 1.0 APTT 31.3 Sodium 139 Potassium 3.8 Chloride 105 Carbon Dioxide 27 BUN 8 Creatinine 0.87 Est GFR (Non-Af Amer) > 60 - Imaging EKG: report reviewed Additional studies: stress 10/2018 Impression: No ischemia or infarct on perfusion study. Stress LVEF 67%. Pharmacologic stress ECG non-diagnostic for ischemia. Frequent PVCs at rest and throughout stress. echo 04/2016 Impressions: LVEF 50%. Normal LV chamber size, wall thickness and function. Mild left ventricular diastolic dysfunction. Normal right ventricular structure and function. No evidence of pulmonary hypertension. No significant valvular dysfunction. CT 09/2018 IMPRESSION: Interval increase in size of oval shaped aneurysm of the distal infrarenal abdominal aorta, now measuring up to 5.4 cm, previously 5.0 cm. See below recommendation. Anesthesia Exam vitals reviewed in chart Weight: 67 kg NPO (# of Hours): > 8 hr - HEENT Pupil (Motor): Pupils equal, EOMI Mallampati: III Denture Type: Upper: Complete, Lower: Complete Oral Opening: Less than or equal to 3 (minimal jaw mobility, unable to bite upper lip) - MANAGER SHELL LOC: Oriented MANAGER SHELL Motor: Normal RUE, Normal LUE, Normal RLE, Normal LLE, Normal Face MANAGER SHELL Sensory: Normal: RUE, LUE, RLE, LLE, Face - Cardiac Rhythm: Regular Murmur: None - Pulmonary Breath Sounds: bilateral Clear Respiratory Effort: Symmetrical Anesthesia Assess/Plan ASA Score: 3 Level of consciousness: Cooperative, Oriented Anesthetic Plan: General Monitoring Plan: Standard Monitors, A-Line Recovery Plan: PACU
[2018-12-17] MEDS ORDERED: Heparin 1,000 UNITS/500 mL 1,500 ML ONE (07:20)
[2018-12-17] MEDS ORDERED: Isovue-300 150 ML INFUS..BTL ONE (07:21)
[2018-12-17] MEDS ORDERED: Acetaminophen IV 1,000 MG/100 ML INFUS..BTL IVPB ONE (07:27)
[2018-12-17] MEDS ORDERED: Famotidine 20 MG/2 ML VIAL IVP ONE (07:27)
[2018-12-17] MEDS ORDERED: Heparin 1,000 UNITS/500 mL 500 ML ONE ×2 (07:29→09:22)
[2018-12-17] MEDS ORDERED: *HR* Promethazine 25 MG/ML VIAL IVP PRN (07:36)
[2018-12-17] MEDS ORDERED: *HR* OxyCODONE Immed Rel 5 MG TABLET PO PRN (07:36)
[2018-12-17] MEDS ORDERED: *HR* Labetalol 20 MG/4 ML SYRINGE IVP PRN ×2 (07:36→12:03)
[2018-12-17] MEDS ORDERED: Ondansetron 4 MG/2 ML VIAL IVP ONE (07:36)
[2018-12-17] MEDS ORDERED: *HR* HYDROmorphone (PF) 1 MG/ML SYRINGE IVP PRN (07:36)
[2018-12-17] MEDS ORDERED: Calcium Gluconate 1,000 MG/10 ML VIAL ONE (08:33)
[2018-12-17] MEDS ORDERED: EPHEDrine 50 MG/ML VIAL ONE (08:36)
[2018-12-17] MEDS ORDERED: Dexamethasone 4 MG/ML VIAL ONE (10:01)
[2018-12-17] MEDS ORDERED: Neostigmine Methylsulfate 3 MG/3 ML SYRINGE ONE (10:08)
--- NOTE | 2018-12-17 11:23 | Operative Note ---
Date of procedure: 12/17/18 Pre-op diagnosis: 5.4 cm infrarenal abdominal aortic aneurysm Post-op diagnosis: same Procedure: 1. Endograft repair of abdominal aortic aneurysm with Cook Zenith graft and two docking limbs including radiologic supervision and interpretation. 2. Introduction of catheter into the aorta via right common femoral artery. 3. Introduction of catheter into the aorta via left common femoral artery. 4. Right femoral vessel exposure for endograft placement. 5. Left femoral vessel exposure for endograft placement. Complications: None Anesthesia: GETA Surgeon: Darnell Castro Was there an retail assistant present: No Estimated blood loss (cc): 50 Specimen: None Condition: stable Disposition: PACU Procedure in Detail: Indications: The patient is a 58-year-old male with a history of hypertension who was found have an abdominal aortic aneurysm. His aneurysm measured 5.4 cm in diameter and was appropriate for endograft placement. Repair was recommended to reduce his risk of rupture and subsequent . Procedure: The patient was identified in the preoperative area. The risks, benefits and alternatives were discussed and all questions were answered. The patient was then brought to the operating room and placed in the supine position on the operating room table. After induction of general endotracheal anesthesia, the patient was cleaned and draped in normal sterile fashion. Oblique incisions were made over both groins sharply. Hemostasis was obtained with electrocautery. Using blunt and sharp and electrocautery dissection, the bilateral common, deep and superficial femoral arteries were dissected circumferentially and surrounded with Vesseloops. At this point, the patient received 5000 units of heparin intravenously and then bilateral femoral punctures with large-bore needles were performed. Bentson wi res were advanced into the aorta under fluoroscopic view. Given the anatomy, the main body was selected to be the right side of the patient. The needles were exchanged for bilateral #8-Indonesian sheaths and a long Pigtail catheter was advanced over the right wire into the aortic arch. The wire was replaced with a Lunderquist wire. The catheter was removed and repositioned in the suprarenal aorta via the left femoral artery. The main body was inserted over the Lunderquist wire with the contralateral limb being in the anterolateral position. An aortogram was then performed at the level of the renal artery. The graft was positioned just inferior to the renal arteries and the first 2 segments were deployed. Again an aortogram revealed adequate infrarenal placement. The graft was then further opened to the contralateral limb exposed. A final angiogram was performed confirming adequate infrarenal placement. The suprarenal stent was deployed in the usual fashion. The contralateral limb was then selected with a Bentson wire using a guiding catheter. Intragraft placement of the wire was confirmed by placing the pigtail and spinning it freely as well as injecting a small amount of contrast. An oblique view of the pelvis was performed with contrast to size the left extension limb. The #8-Indonesian sheath was removed and exchanged for the appropriate limb, which was advanced under fluoroscopic view and positioned. The graft was deployed and the introducer was removed. The remaining portion of the main body was deployed, the top cap was retrieved and the introducer was removed. An oblique view of the right pelvis was performed in a similar fashion to determine the length of the graft on the right. The graft extension was then advanced on the right and positioned in the usual fashion. Upon completion of the graft docking limb extension, a Coda balloon was then advanced into the graft proximal and distal endpoints as well as overlap were expanded with gentle pressure. The balloon was left in the suprarenal position and a Flush catheter was placed in the suprarenal aorta. A Flush completion angiogram revealed no evidence of an endoleak. Tension was applied to the Vesseloops in the groin. The bilateral sheaths were then removed. After confirming hemodynamic stability, the wires were then removed. The bilateral arteriotomies were repaired with a running 6-0 Prolene. Antibiotic containing irrigation was infused into the incisions. Platelet rich and platelet poor plasma were infused into the incisions. The bilateral groins were closed with a single layer of 2-0 Vicryl followed by two layers of 3-0 Vicryl followed by a layer of 3-0 monocryl in the subcuticular region. Sterile dressings were applied. The patient was then extubated and taken to the recovery room in stable condition. Device Sizes: 1. Main Body: [id number] 2. Right Extension Limb: [id number] 3. Left Extension Limb: [id number]
[2018-12-17] MEDS ORDERED: 0.9 % Sodium Chloride 1,000 ML IVC SCH (12:03)
[2018-12-17] MEDS ORDERED: Morphine Sulfate Immed Rel 15 MG TABLET PO PRN (12:03)
[2018-12-17] MEDS ORDERED: tiZANidine 4 MG TABLET PO PRN (12:03)
[2018-12-17] MEDS ORDERED: Testosterone Cypionate 200 MG/ML 10 ML MDV IM SCH (12:03)
[2018-12-17] MEDS ORDERED: Ondansetron 4 MG/2 ML VIAL IVP PRN (12:03)
[2018-12-17] MEDS: *HR* Metoprolol 5 MG/5 ML VIAL IVP SCH ×2 (13:49→17:58)
[2018-12-17] MEDS: Morphine Sulfate ER (12 HR) 60 MG TABLET.ER PO SCH (17:58)
[2018-12-17] MEDS ORDERED: Naloxone 0.4 MG/ML INJ IVP PRN (20:00)
[2018-12-17] MEDS: Topiramate 25 MG TABLET PO SCH (21:33)
[2018-12-18] MEDS: *HR* Metoprolol 5 MG/5 ML VIAL IVP SCH ×2 (00:12→06:13)
[2018-12-18 02:10] LABS: Basophils % 0.2 %; Hematocrit 43.7 % (37.5-50.1); Immature Granulocytes % 0.5 % (0-4); Mean Corpuscular HGB Conc 31.8 g/dL (31.6-35.5); Mean Corpuscular Hemoglobin 31.8 pg (28.0-33.3); Mean Platelet Volume 10.4 fL (9.4-12.4); Monocytes # 0.6 K/mcL (0.0-1.3); Monocytes % 5.5 %; Platelet Count 139 K/mcL (140-400); Red Blood Count 4.37 M/mcL (4.19-5.50); Red Cell Distribution Width 13.5 % (11.5-14.5); Segmented Neutrophils % 84.8 %; White Blood Count 10.6 K/mcL (4.3-11.1)
[2018-12-18 02:11] LABS: Hemoglobin 13.9 g/dL (12.9-16.9)
[2018-12-18 02:34] LABS: BUN/Creatinine Ratio 11 (6-26); Blood Urea Nitrogen 9 mg/dL (6-20); Calcium 7.3 mg/dL (8.6-10.3); Carbon Dioxide 20 mEq/L (23-29); Chloride 109 mEq/L (98-107); Glucose 76 mg/dL (70-105); Osmolality,Calculated 279 (280-300); Sodium 136 mEq/L (136-145); eGFR For African Americans > 60 (> 60); eGFR For Non-African Americans > 60 (> 60)
[2018-12-18] MEDS ORDERED: *HR* Heparin 5,000 UNIT/ML VIAL SQ SCH ×2 (06:00)
[2018-12-18] MEDS: Morphine Sulfate ER (12 HR) 60 MG TABLET.ER PO SCH (06:12)
--- NOTE | 2018-12-18 07:00 | Discharge Summary ---
Date of Encounter: 12/18/18 Time of Encounter: 07:45 - Discharge Diagnosis (1) AAA (abdominal aortic aneurysm) without rupture Priority: Primary Status: Chronic Comments: The patient is postoperative day #1 after endograft repair of an abdominal aortic aneurysm. The patient is tolerating a diet. He reports adequate pain control. The incisions are healing well. He denies any abdominal, flank or back pain. He will be discharged today. (2) Essential hypertension Priority: Secondary Status: Chronic Comments: The patient was counseled regarding atherosclerotic risk factor reduction. - Hospital Course Hospital course: Mr. Epps is a 58 year old male with a history of an abdominal aortic aneurysm and hypertension. Patient was found to have a 5.4 cm abdominal aortic aneurysm. His anatomy was extended for endograft placement. He was taken to the operating room where he underwent endograft repair his aneurysm. He tolerated the procedure well. Postoperative day #1 the patient was tolerating his diet. His pain was well-controlled. He should be healing well. He was discharged to home in stable condition without complication on postoperative day #1. - Time Spent with Patient Total time spent providing and/or coordinating discharge services: - Discharge Medications Prescriptions: Continued Tizanidine HCl [Zanaflex] 4 mg PO TID PRN PRN Reason: Muscle Spasm Testosterone Cypionate [Testone Cik] 400 mg IM Q2W Amitriptyline [Elavil] 50 mg PO HS Morphine Sulfate ER (12 HR) [MS Contin] 60 mg PO Q12HR #20 Potassium Chloride [K-Tab ER] 20 meq PO DAILY Multivitamin [Multi-Day Vitamins] 1 each PO DAILY Morphine Sulfate Immed Rel [Morphine Sulfate] 15 mg PO TID PRN PRN Reason: Breakthrough Pain Metoprolol XL (24 HR) Succ [Toprol Xl] 25 mg PO BID Topiramate [Topamax] 50 mg PO BID Aspirin 81 mg PO DAILY Omeprazole [PriLOSEC] 20 mg PO DAILY PRN PRN Reason: Heartburn Home Medications: Tizanidine HCl [Zanaflex] 4 mg PO TID PRN 05/02/16 [History] Amitriptyline [Elavil] 50 mg PO HS 05/03/16 [History] Testosterone Cypionate [Testone Cik] 400 mg IM Q2W 05/03/16 [History] Morphine Sulfate ER (12 HR) [MS Contin] 60 mg PO Q12HR #20 05/08/16 [Rx] Metoprolol XL (24 HR) Succ [Toprol Xl] 25 mg PO BID 08/15/16 [History] Morphine Sulfate Immed Rel [Morphine Sulfate] 15 mg PO TID PRN 08/15/16 [History] Multivitamin [Multi-Day Vitamins] 1 each PO DAILY 08/15/16 [History] Potassium Chloride [K-Tab ER] 20 meq PO DAILY 08/15/16 [History] Omeprazole [PriLOSEC] 20 mg PO DAILY PRN 05/12/18 [History] Aspirin 81 mg PO DAILY 12/17/18 [History] Topiramate [Topamax] 50 mg PO BID 12/17/18 [History] Allergies/Adverse Reactions: Allergy/AdvReac Type Severity Reaction Status Date / Time No Known Allergies Allergy Verified 12/17/18 18:03 Date of admission: 12/17/18 11:47 Primary care physician: Mani Palmer MD Procedure(s) Performed: Endograft repair of Abdominal aortic aneurysm. Discharging clinician: Darnell Castro Anticipated date of discharge: 12/18/18 Exam Vital Signs, Last 4 Hours Temp Pulse Resp BP Pulse Ox 12/18/18 04:31 94 98/58 12/18/18 03:44 97.8 F 89 17 95/59 96 General: Present: Conversant HEENT: Present: Pupils equal Cardiac: Present: Reg Rate and Rhythm Lungs: Present: Normal Breath Sounds Neuro: Present: Alert and responsive, No focal deficits noted Abdomen: Present: Soft, Non-tender. Absent: Masses Vascular: Present: Normal capillary refill, Surgical incisions (No hematoma no erythema). Absent: Cyanosis, Edema Skin: Present: No rashes noted on visualized skin - Patient Status Disposition: Home, Self-Care Condition: Good Functional capacity at discharge: independent ambulation Overall status at discharge: patient is back to baseline - Discharge Instructions Instructions: Endovascular Abdominal Aortic Aneurysm Repair (DC) Follow Up With: Mani Palmer MD [Primary Care Provider] - 12/25/18 9:30 am Darnell Castro MD [Partnered Physician] - 01/19/19 1:50 pm Additional Instructions: May remove bandage and shower on 12/19/2018. Wash wounds gently with soap and water only and pat to dry. Apply dry gauze to wounds daily for 7 days. No tub baths or swimming until 12/29/2018. Call Dr. Castro at [phone] with questions or concerns. - Diet and Activity Activity: increase activity as tolerated Diet: advance to your usual diet
[2018-12-18 07:58] VITALS: BP 102/67
[2018-12-18] MEDS: Topiramate 25 MG TABLET PO SCH (08:26)
[2018-12-18] MEDS ORDERED: Aspirin 81 MG TAB.CHEW PO SCH (09:00)
[2018-12-18] MEDS ORDERED: predniSONE 5 MG TABLET PO SCH (09:00)
[2018-12-18] MEDS ORDERED: Multivit/Ca/Min/Fe/FA 1 TAB TABLET PO SCH (09:00)
[2018-12-18] MEDS ORDERED: Metoprolol XL (24 HR) Succ 50 MG TAB.ER.24H PO SCH (09:00)
== END 2018-12-18 10:53 | disposition home or self-care (01) | DRG 269 ==
LOC: SAMDAY 06:36 → 2NNU 11:47
PROVIDERS: ADMIT Surgery; ATTEND Surgery